=== PATIENT | male | born 1945 | race Caucasian/White ===

== ENCOUNTER 2018-03-25 16:59 | Inpatient (IN) | payer MEDICARE, MEDICAID ==
[~2018-03-25] VITALS: Ht 172.7 cm; Wt 115.7 kg
[~2018-03-25 16:59] MED LIST: ACET-2178 PO; APIX5TAB PO; ATOR20TA PO; BISA10SU8 RC; COR3 PO; DEXT15DR5 RIGHTEYE; DOCU-138 PO; DUONEB3 ML INH; FERR325T6 PO; FLUT1DIS2 IH; FURO-151 PO; HYDR-4001 PO; LEVVL SQ; MULT-1146 MT; OMEP20TA15 PO; ONDA4TAB21 PO; P20 PO; TRAV2.5D EACHEYE
[2018-03-25] MEDS ORDERED: PIPERACILLIN/TAZ 3.375G PREMIX 50 ML IV ONE (18:00)
[2018-03-25] MEDS ORDERED: SODIUM CHLORIDE 0.9% 1000ML BAG (SEPSIS BOLUS) IV ONE (18:00)
[2018-03-25] MEDS ORDERED: FUROSEMIDE 40MG/4ML VIAL IV ONE (18:00)
[2018-03-25] MEDS ORDERED: VANCOMYCIN 1 G PREMIX 200 ML IV ONE (18:00)
[2018-03-25] MEDS ORDERED: ASPIRIN 81MG TABLET PO ONE (18:00)
[2018-03-25] MEDS ORDERED: NITROGLYCERIN OINT 1GM/INCH UDPKT TD ONE (18:00)
[2018-03-25 19:22] LABS: BASOPHILS % 0.6 % (0.0-2.0); EOSINOPHILS % 0.3 % (0.0-5.0); HEMOGLOBIN. 10.6 g/dL (14.0-18.0); LYMPHOCYTES % 11.1 % (20.0-50.0); MEAN CORPUSCULAR HEMOGLOBIN 28.9 pg (28.0-32.0); MEAN CORPUSCULAR VOLUME 87.6 fL (80.0-94.0); MEAN PLATELET VOLUME 8.3 fl (7.4-10.4); MONOCYTES % 11.4 % (2.0-8.0); NEUTROPHILS % 76.6 % (40.0-76.0); PLATELET 110 x1000/uL (130-400); RED BLOOD CELL COUNT 3.65 mill/uL (4.7-6.1); RED CELL DISTRIBUTION WIDTH 16.9 % (11.6-14.6)
[2018-03-25 19:25] LABS: CHLORIDE 93 mEq/L (98-107)
[2018-03-25 19:26] LABS: INR 1.1; PROTHROMBIN TIME 11.9 sec (9.4-11.6)
[2018-03-25 19:47] LABS: CLARITY URINE CLEAR (CLEAR); COLOR URINE YELLOW (YELLOW); KETONES URINE NEGATIVE (NEGATIVE); LEUKOCYTE ESTERASE URINE NEGATIVE (NEGATIVE); NITRITE URINE NEGATIVE (NEGATIVE); OCCULT BLOOD URINE NEGATIVE (NEGATIVE); PH URINE 7.5 (4.5-8.0); PROTEIN URINE NEGATIVE (NEGATIVE); SPECIFIC GRAVITY URINE 1.011 (1.005-1.030)
[2018-03-25] MEDS ORDERED: ZOLPIDEM TARTRATE 5MG TABLET PO PRN (21:00)
[2018-03-25] MEDS ORDERED: DOCUSATE SODIUM 100MG CAPSULE PO PRN (22:00)
[2018-03-25] MEDS ORDERED: MAGNESIUM/ALUMINUM HYDROXIDE/SIMETHICONE 30ML UDC PO PRN (22:00)
[2018-03-25] MEDS ORDERED: ENOXAPARIN 40MG/0.4ML SYR SUBCUT SCH (22:00)
[2018-03-25] MEDS ORDERED: CLONIDINE 0.1MG TABLET PO PRN (22:00)
[2018-03-25] MEDS ORDERED: IPRATROPIUM/ALBUTEROL 0.5-3(2.5)MG/3ML NEB INH PRN (22:00)
[2018-03-25] MEDS ORDERED: ACETAMINOPHEN 325MG TABLET PO PRN (22:00)
[2018-03-25] MEDS ORDERED: HYDROCODONE/ACETAMINOPHEN 5/325MG TABLET PO PRN (22:00)
[2018-03-25 22:10] VITALS: BP 114/59
[2018-03-25 22:20] VITALS: BP 114/59
[2018-03-25] MEDS ORDERED: ONDANSETRON 4MG ODT PO PRN (22:30)
[2018-03-26] VITALS: BP 101/50
[2018-03-26] MEDS: IPRATROPIUM/ALBUTEROL 0.5-3(2.5)MG/3ML NEB INH SCH ×4 (00:29→21:03)
[2018-03-26 04:00] VITALS: BP 119/63
[2018-03-26] MEDS: OMEPRAZOLE 20MG CAPSULE EXTENDED RELEASE PO SCH (05:51)
[2018-03-26 06:39] LABS: BASOPHILS % 0.5 % (0.0-2.0); EOSINOPHILS % 0.4 % (0.0-5.0); HEMATOCRIT. 29.1 % (42.0-52.0); HEMOGLOBIN. 9.8 g/dL (14.0-18.0); LYMPHOCYTES % 11.9 % (20.0-50.0); MEAN CORPUSCULAR HEMOGLOBIN 29.3 pg (28.0-32.0); MEAN CORPUSCULAR VOLUME 87.1 fL (80.0-94.0); MONOCYTES % 13.3 % (2.0-8.0); NEUTROPHILS % 73.9 % (40.0-76.0); PLATELET 105 x1000/uL (130-400); RED BLOOD CELL COUNT 3.34 mill/uL (4.7-6.1); RED CELL DISTRIBUTION WIDTH 16.8 % (11.6-14.6)
[2018-03-26 08:00] VITALS: BP 123/60
[2018-03-26] MEDS ORDERED: ENOXAPARIN 30MG/0.3ML SYR SUBCUT SCH (09:00)
[2018-03-26 12:00] VITALS: BP 117/55
[2018-03-26] MEDS ORDERED: DEXTROSE 50% WATER 50ML SYRINGE IV PRN (12:15)
[2018-03-26] MEDS: INSULIN LISPRO 100 UNITS/ML SUBCUT SCH ×3 (12:34→20:59)
[2018-03-26] MEDS: POTASSIUM CHLORIDE 20MEQ TABLET SR PO SCH (12:53)
[2018-03-26] MEDS: CARVEDILOL 6.25 MG TABLET PO SCH ×2 (12:54→20:37)
[2018-03-26] MEDS ORDERED: METHYLPREDNISOLONE SOD SUCC 125 MG/2 ML VIAL IV SCH (13:30)
[2018-03-26 16:00] VITALS: BP 127/51
[2018-03-26] MEDS: FUROSEMIDE 40MG/4ML VIAL IV SCH (17:50)
[2018-03-26] MEDS: APIXABAN 5 MG TABLET PO SCH (17:50)
[2018-03-26] MEDS: BLOOD SUGAR DIAGNOSTIC STRIP TEST SCH ×2 (17:51→20:56)
[2018-03-26] MEDS: CEFAZOLIN 1000MG PREMIX 50 ML IV SCH (19:03)
[2018-03-26 20:00] VITALS: BP 109/59
[2018-03-26] MEDS: BUDESONIDE 0.5MG/2ML NEB HHN SCH (21:03)
[2018-03-27] VITALS: BP 101/66
[2018-03-27] MEDS: IPRATROPIUM/ALBUTEROL 0.5-3(2.5)MG/3ML NEB INH SCH ×4 (01:26→19:53)
[2018-03-27 04:00] VITALS: BP 118/60
[2018-03-27] MEDS: BLOOD SUGAR DIAGNOSTIC STRIP TEST SCH ×4 (06:27→20:46)
[2018-03-27] MEDS: FUROSEMIDE 40MG/4ML VIAL IV SCH ×2 (06:31→16:25)
[2018-03-27] MEDS: OMEPRAZOLE 20MG CAPSULE EXTENDED RELEASE PO SCH (06:31)
[2018-03-27] MEDS: CEFAZOLIN 1000MG PREMIX 50 ML IV SCH ×2 (06:31→18:29)
[2018-03-27] MEDS: INSULIN LISPRO 100 UNITS/ML SUBCUT SCH ×5 (06:35→20:50)
[2018-03-27 06:43] LABS: BASOPHILS % 0.1 % (0.0-2.0); HEMATOCRIT. 29.2 % (42.0-52.0); HEMOGLOBIN. 9.7 g/dL (14.0-18.0); LYMPHOCYTES % 10.7 % (20.0-50.0); MEAN CORPUSCULAR VOLUME 87.1 fL (80.0-94.0); MEAN PLATELET VOLUME 8.1 fl (7.4-10.4); MONOCYTES % 6.7 % (2.0-8.0); NEUTROPHILS % 82.5 % (40.0-76.0); PLATELET 93 x1000/uL (130-400); RED BLOOD CELL COUNT 3.35 mill/uL (4.7-6.1); RED CELL DISTRIBUTION WIDTH 16.5 % (11.6-14.6)
[2018-03-27 08:00] VITALS: BP 115/57
[2018-03-27] MEDS: BUDESONIDE 0.5MG/2ML NEB HHN SCH ×2 (08:12→19:52)
[2018-03-27] MEDS: APIXABAN 5 MG TABLET PO SCH ×2 (08:53→16:26)
[2018-03-27] MEDS: POTASSIUM CHLORIDE 20MEQ TABLET SR PO SCH (08:53)
[2018-03-27] MEDS: CARVEDILOL 6.25 MG TABLET PO SCH ×2 (08:53→20:46)
[2018-03-27] MEDS ORDERED: FUROSEMIDE 40MG/4ML VIAL IV SCH (09:00)
[2018-03-27] MEDS: INSULIN GLARGINE UD 100 UNITS/ML SYR SUBCUT SCH (13:00)
[2018-03-27 16:00] VITALS: BP 110/53
[2018-03-27 20:00] VITALS: BP 116/57
[2018-03-28] VITALS: BP 118/61
[2018-03-28] MEDS: IPRATROPIUM/ALBUTEROL 0.5-3(2.5)MG/3ML NEB INH SCH ×4 (01:36→20:57)
[2018-03-28 04:00] VITALS: BP 115/70
[2018-03-28] MEDS: FUROSEMIDE 40MG/4ML VIAL IV SCH (05:20)
[2018-03-28] MEDS: OMEPRAZOLE 20MG CAPSULE EXTENDED RELEASE PO SCH (05:20)
[2018-03-28] MEDS: CEFAZOLIN 1000MG PREMIX 50 ML IV SCH ×2 (05:21→17:59)
[2018-03-28] MEDS: INSULIN LISPRO 100 UNITS/ML SUBCUT SCH ×4 (05:36→20:52)
[2018-03-28] MEDS: BLOOD SUGAR DIAGNOSTIC STRIP TEST SCH ×4 (05:36→20:53)
[2018-03-28 07:28] LABS: BASOPHILS % 0.5 % (0.0-2.0); EOSINOPHILS % 0.2 % (0.0-5.0); HEMATOCRIT. 28.4 % (42.0-52.0); HEMOGLOBIN. 9.6 g/dL (14.0-18.0); LYMPHOCYTES % 11.6 % (20.0-50.0); MEAN CORPUSCULAR HEMOGLOBIN 29.2 pg (28.0-32.0); MEAN CORPUSCULAR VOLUME 86.9 fL (80.0-94.0); MEAN PLATELET VOLUME 8.2 fl (7.4-10.4); MONOCYTES % 7.5 % (2.0-8.0); NEUTROPHILS % 80.2 % (40.0-76.0); PLATELET 116 x1000/uL (130-400); RED BLOOD CELL COUNT 3.27 mill/uL (4.7-6.1); RED CELL DISTRIBUTION WIDTH 16.7 % (11.6-14.6)
[2018-03-28 08:00] VITALS: BP 126/59
[2018-03-28] MEDS: BUDESONIDE 0.5MG/2ML NEB HHN SCH ×2 (08:10→20:57)
[2018-03-28] MEDS: CARVEDILOL 6.25 MG TABLET PO SCH ×2 (09:00→20:47)
[2018-03-28] MEDS: POTASSIUM CHLORIDE 20MEQ TABLET SR PO SCH (10:06)
[2018-03-28] MEDS: APIXABAN 5 MG TABLET PO SCH ×2 (10:07→18:00)
[2018-03-28] MEDS: INSULIN GLARGINE UD 100 UNITS/ML SYR SUBCUT SCH (10:08)
[2018-03-28 12:00] VITALS: BP 130/68
[2018-03-28 16:00] VITALS: BP 122/63
[2018-03-28] MEDS: FUROSEMIDE 100MG/10ML VIAL IV SCH (17:59)
[2018-03-28 20:00] VITALS: BP 118/68
[2018-03-29] VITALS (7 sets, daily range): BP systolic 111–140; BP diastolic 61–74
[2018-03-29] MEDS: IPRATROPIUM/ALBUTEROL 0.5-3(2.5)MG/3ML NEB INH SCH ×4 (01:35→21:17)
[2018-03-29] MEDS: OMEPRAZOLE 20MG CAPSULE EXTENDED RELEASE PO SCH (06:02)
[2018-03-29] MEDS: CEFAZOLIN 1000MG PREMIX 50 ML IV SCH ×2 (06:02→17:32)
[2018-03-29] MEDS: FUROSEMIDE 100MG/10ML VIAL IV SCH ×2 (06:02→17:32)
[2018-03-29] MEDS: BLOOD SUGAR DIAGNOSTIC STRIP TEST SCH ×4 (06:12→20:50)
[2018-03-29] MEDS: INSULIN LISPRO 100 UNITS/ML SUBCUT SCH ×4 (06:12→20:57)
[2018-03-29 07:02] LABS: BASOPHILS % 0.5 % (0.0-2.0); EOSINOPHILS % 0.5 % (0.0-5.0); HEMATOCRIT. 28.6 % (42.0-52.0); HEMOGLOBIN. 9.5 g/dL (14.0-18.0); LYMPHOCYTES % 13.1 % (20.0-50.0); MEAN CORPUSCULAR HEMOGLOBIN 29.1 pg (28.0-32.0); MEAN CORPUSCULAR VOLUME 87.2 fL (80.0-94.0); MEAN PLATELET VOLUME 8.1 fl (7.4-10.4); NEUTROPHILS % 76.9 % (40.0-76.0); PLATELET 111 x1000/uL (130-400); RED BLOOD CELL COUNT 3.28 mill/uL (4.7-6.1); RED CELL DISTRIBUTION WIDTH 16.7 % (11.6-14.6)
[2018-03-29] MEDS: BUDESONIDE 0.5MG/2ML NEB HHN SCH (07:43)
[2018-03-29] MEDS: POTASSIUM CHLORIDE 20MEQ TABLET SR PO SCH (09:02)
[2018-03-29] MEDS: CARVEDILOL 6.25 MG TABLET PO SCH ×2 (09:02→20:53)
[2018-03-29] MEDS: APIXABAN 5 MG TABLET PO SCH ×2 (09:02→17:32)
[2018-03-29] MEDS: INSULIN GLARGINE UD 100 UNITS/ML SYR SUBCUT SCH (11:02)
[2018-03-30] MEDS: IPRATROPIUM/ALBUTEROL 0.5-3(2.5)MG/3ML NEB INH SCH ×4 (01:19→21:00)
[2018-03-30 03:56] VITALS: BP 125/54
[2018-03-30] MEDS: CEFAZOLIN 1000MG PREMIX 50 ML IV SCH ×2 (06:18→17:31)
[2018-03-30] MEDS: INSULIN LISPRO 100 UNITS/ML SUBCUT SCH ×4 (06:20→20:57)
[2018-03-30] MEDS: OMEPRAZOLE 20MG CAPSULE EXTENDED RELEASE PO SCH (06:20)
[2018-03-30] MEDS: BLOOD SUGAR DIAGNOSTIC STRIP TEST SCH ×4 (06:20→20:54)
[2018-03-30] MEDS: FUROSEMIDE 100MG/10ML VIAL IV SCH ×2 (06:26→17:32)
[2018-03-30 08:00] VITALS: BP 125/61
[2018-03-30] MEDS: APIXABAN 5 MG TABLET PO SCH ×2 (10:14→17:32)
[2018-03-30] MEDS: CARVEDILOL 6.25 MG TABLET PO SCH ×2 (10:14→21:15)
[2018-03-30] MEDS: POTASSIUM CHLORIDE 20MEQ TABLET SR PO SCH (10:15)
[2018-03-30] MEDS: INSULIN GLARGINE UD 100 UNITS/ML SYR SUBCUT SCH (10:16)
[2018-03-30 12:00] VITALS: BP 130/66
[2018-03-30 16:00] VITALS: BP 92/62
[2018-03-30 17:13] LABS: HEMATOCRIT 29.5 % (42.0-52.0); HEMOGLOBIN 9.8 g/dL (14.0-18.0); MEAN CORPUSCULAR VOLUME 87.5 fL (80.0-94.0); PLATELET 100 x1000/uL (130-400); RED BLOOD CELL COUNT 3.37 mill/uL (4.7-6.1); RED CELL DISTRIBUTION WIDTH 16.2 % (11.6-14.6)
[2018-03-30 20:00] VITALS: BP 128/63
[2018-03-31] MEDS: IPRATROPIUM/ALBUTEROL 0.5-3(2.5)MG/3ML NEB INH SCH ×4 (00:48→21:20)
[2018-03-31] MEDS: CEFAZOLIN 1000MG PREMIX 50 ML IV SCH ×2 (05:56→17:19)
[2018-03-31] MEDS: BLOOD SUGAR DIAGNOSTIC STRIP TEST SCH ×4 (06:19→20:42)
[2018-03-31] MEDS: FUROSEMIDE 100MG/10ML VIAL IV SCH ×2 (06:19→17:17)
[2018-03-31] MEDS: OMEPRAZOLE 20MG CAPSULE EXTENDED RELEASE PO SCH (06:19)
[2018-03-31 06:35] LABS: BASOPHILS % 0.4 % (0.0-2.0); HEMATOCRIT. 29.9 % (42.0-52.0); HEMOGLOBIN. 10.1 g/dL (14.0-18.0); MEAN CORPUSCULAR HEMOGLOBIN 29.4 pg (28.0-32.0); MEAN CORPUSCULAR VOLUME 87.1 fL (80.0-94.0); MEAN PLATELET VOLUME 7.9 fl (7.4-10.4); MONOCYTES % 7.5 % (2.0-8.0); NEUTROPHILS % 73.1 % (40.0-76.0); PLATELET 108 x1000/uL (130-400); RED BLOOD CELL COUNT 3.43 mill/uL (4.7-6.1); RED CELL DISTRIBUTION WIDTH 16.1 % (11.6-14.6)
[2018-03-31] MEDS: INSULIN LISPRO 100 UNITS/ML SUBCUT SCH ×4 (06:37→20:42)
[2018-03-31] MEDS: CARVEDILOL 6.25 MG TABLET PO SCH ×2 (08:17→20:40)
[2018-03-31] MEDS: POTASSIUM CHLORIDE 20MEQ TABLET SR PO SCH (08:17)
[2018-03-31] MEDS: APIXABAN 5 MG TABLET PO SCH ×2 (08:18→17:13)
[2018-03-31 08:23] VITALS: BP 133/67
[2018-03-31] MEDS: INSULIN GLARGINE UD 100 UNITS/ML SYR SUBCUT SCH (10:17)
[2018-03-31 20:00] VITALS: BP 120/66
[2018-04-01] VITALS: BP 113/80
[2018-04-01] MEDS: IPRATROPIUM/ALBUTEROL 0.5-3(2.5)MG/3ML NEB INH SCH ×4 (01:31→21:45)
[2018-04-01 04:00] VITALS: BP 120/70
[2018-04-01] MEDS: CEFAZOLIN 1000MG PREMIX 50 ML IV SCH ×2 (06:05→17:59)
[2018-04-01] MEDS: BLOOD SUGAR DIAGNOSTIC STRIP TEST SCH ×4 (06:08→21:00)
[2018-04-01] MEDS: INSULIN LISPRO 100 UNITS/ML SUBCUT SCH ×4 (06:09→21:00)
[2018-04-01] MEDS: FUROSEMIDE 100MG/10ML VIAL IV SCH ×2 (06:15→17:41)
[2018-04-01] MEDS: OMEPRAZOLE 20MG CAPSULE EXTENDED RELEASE PO SCH (06:15)
[2018-04-01 08:00] VITALS: BP 137/59
[2018-04-01] MEDS: POTASSIUM CHLORIDE 20MEQ TABLET SR PO SCH (08:43)
[2018-04-01] MEDS: APIXABAN 5 MG TABLET PO SCH ×2 (08:43→17:41)
[2018-04-01] MEDS: CARVEDILOL 6.25 MG TABLET PO SCH ×2 (08:44→20:56)
[2018-04-01 12:00] VITALS: BP 115/91
[2018-04-01] MEDS: INSULIN GLARGINE UD 100 UNITS/ML SYR SUBCUT SCH (12:11)
[2018-04-01 16:00] VITALS: BP 117/59
[2018-04-01 20:00] VITALS: BP 119/63
[2018-04-02] VITALS: BP 112/60
[2018-04-02] MEDS: IPRATROPIUM/ALBUTEROL 0.5-3(2.5)MG/3ML NEB INH SCH ×3 (02:30→15:11)
[2018-04-02 04:00] VITALS: BP 125/67
[2018-04-02] MEDS: CEFAZOLIN 1000MG PREMIX 50 ML IV SCH ×2 (05:21→18:00)
[2018-04-02] MEDS: INSULIN LISPRO 100 UNITS/ML SUBCUT SCH ×3 (06:43→17:30)
[2018-04-02] MEDS: BLOOD SUGAR DIAGNOSTIC STRIP TEST SCH ×3 (06:43→17:26)
[2018-04-02] MEDS: OMEPRAZOLE 20MG CAPSULE EXTENDED RELEASE PO SCH (06:44)
[2018-04-02] MEDS: FUROSEMIDE 100MG/10ML VIAL IV SCH ×2 (06:44→17:26)
[2018-04-02 07:06] LABS: BASOPHILS % 0.6 % (0.0-2.0); EOSINOPHILS % 0.7 % (0.0-5.0); HEMATOCRIT. 27.4 % (42.0-52.0); HEMOGLOBIN. 9.2 g/dL (14.0-18.0); LYMPHOCYTES % 15.5 % (20.0-50.0); MEAN CORPUSCULAR HEMOGLOBIN 29.4 pg (28.0-32.0); MEAN CORPUSCULAR VOLUME 87.2 fL (80.0-94.0); MEAN PLATELET VOLUME 7.8 fl (7.4-10.4); MONOCYTES % 7.8 % (2.0-8.0); NEUTROPHILS % 75.4 % (40.0-76.0); PLATELET 102 x1000/uL (130-400); RED BLOOD CELL COUNT 3.14 mill/uL (4.7-6.1); RED CELL DISTRIBUTION WIDTH 16.4 % (11.6-14.6)
[2018-04-02 07:46] VITALS: BP 112/55
[2018-04-02] MEDS: POTASSIUM CHLORIDE 20MEQ TABLET SR PO SCH (09:19)
[2018-04-02] MEDS: APIXABAN 5 MG TABLET PO SCH ×2 (09:19→17:26)
[2018-04-02] MEDS: CARVEDILOL 6.25 MG TABLET PO SCH (09:20)
[2018-04-02] MEDS: INSULIN GLARGINE UD 100 UNITS/ML SYR SUBCUT SCH (09:41)
[2018-04-02 12:00] VITALS: BP 100/45
[2018-04-02 14:45] VITALS: BP 100/45
== END 2018-04-02 21:09 | DRG 291 ==
LOC: ER 16:59 → 8WST 20:39 → EDBEDREQTM 20:45 → EDBEDREQ 20:45 → ENRESERV 21:07
PROVIDERS: ADMIT Specialist; ATTEND Specialist
PROC: 5A09357 Assistance with Respiratory Ventilation, Less than 24 Consecutive Hours, Continuous Positive Airway Pressure (ICD-10-PCS; principal; 2018-03-25)
PROC: 5A09357 Assistance with Respiratory Ventilation, Less than 24 Consecutive Hours, Continuous Positive Airway Pressure (ICD-10-PCS; 2018-03-26)
PROC: 5A09357 Assistance with Respiratory Ventilation, Less than 24 Consecutive Hours, Continuous Positive Airway Pressure (ICD-10-PCS; 2018-03-27)
PROC: 5A09357 Assistance with Respiratory Ventilation, Less than 24 Consecutive Hours, Continuous Positive Airway Pressure (ICD-10-PCS; 2018-03-28)
PROC: 5A09357 Assistance with Respiratory Ventilation, Less than 24 Consecutive Hours, Continuous Positive Airway Pressure (ICD-10-PCS; 2018-03-29)
PROC: 5A09357 Assistance with Respiratory Ventilation, Less than 24 Consecutive Hours, Continuous Positive Airway Pressure (ICD-10-PCS; 2018-03-30)
PROC: 5A09357 Assistance with Respiratory Ventilation, Less than 24 Consecutive Hours, Continuous Positive Airway Pressure (ICD-10-PCS; 2018-03-31)
PROC: 5A09357 Assistance with Respiratory Ventilation, Less than 24 Consecutive Hours, Continuous Positive Airway Pressure (ICD-10-PCS; 2018-04-01)
PROC: 5A09357 Assistance with Respiratory Ventilation, Less than 24 Consecutive Hours, Continuous Positive Airway Pressure (ICD-10-PCS; 2018-04-02)
DX: I13.0 Hypertensive heart and chronic kidney disease with heart failure and stage 1 through stage 4 chronic kidney disease, or unspecified chronic kidney disease (principal); I50.43 Acute on chronic combined systolic (congestive) and diastolic (congestive) heart failure; J96.20 Acute and chronic respiratory failure, unspecified whether with hypoxia or hypercapnia; E44.1 Mild protein-calorie malnutrition; L03.116 Cellulitis of left lower limb; L03.115 Cellulitis of right lower limb; N17.9 Acute kidney failure, unspecified; E87.3 Alkalosis; I25.10 Atherosclerotic heart disease of native coronary artery without angina pectoris; I48.0 Paroxysmal atrial fibrillation; I27.20 Pulmonary hypertension, unspecified; G47.33 Obstructive sleep apnea (adult) (pediatric); R31.0 Gross hematuria; N40.0 Benign prostatic hyperplasia without lower urinary tract symptoms; D75.9 Disease of blood and blood-forming organs, unspecified; N18.9 Chronic kidney disease, unspecified; J44.9 Chronic obstructive pulmonary disease, unspecified; I42.9 Cardiomyopathy, unspecified; E78.5 Hyperlipidemia, unspecified; E11.51 Type 2 diabetes mellitus with diabetic peripheral angiopathy without gangrene; E11.22 Type 2 diabetes mellitus with diabetic chronic kidney disease; D69.6 Thrombocytopenia, unspecified; D64.9 Anemia, unspecified; E66.01 Morbid (severe) obesity due to excess calories; Z95.5 Presence of coronary angioplasty implant and graft; Z99.81 Dependence on supplemental oxygen; Z90.2 Acquired absence of lung [part of]; Z89.421 Acquired absence of other right toe(s); Z85.118 Personal history of other malignant neoplasm of bronchus and lung; Z83.3 Family history of diabetes mellitus; Z82.49 Family history of ischemic heart disease and other diseases of the circulatory system; Z79.01 Long term (current) use of anticoagulants; Z68.38 Body mass index [BMI] 38.0-38.9, adult; Z88.8 Allergy status to other drugs, medicaments and biological substances; Z79.4 Long term (current) use of insulin; Z79.899 Other long term (current) drug therapy; Z89.422 Acquired absence of other left toe(s)
CPT/HCPCS: 36415; 51702; 71045; 76770; 80048; 80053; 81003; 82962; 83605; 83735; 83880; 84484; 85025; 85027; 85610; 86850; 86900; 87040; 87086; 93005; 93306; 93970; 94640; 94660; 96365; 96366; 96367; 96375; 97116; 97163; 97530; 99285; J0690; J1650; J1815; J1940; J2543; J2930; J3370; J7030; J7040; J7050; J7620; J7626; A4315

== ENCOUNTER 2018-04-12 11:20 | Inpatient (IN) | payer MEDICARE, MEDICAID ==
[~2018-04-12] VITALS: Ht 172.7 cm; Wt 109.3 kg
[2018-04-12] VITALS (7 sets, daily range): BP systolic 109–126; BP diastolic 58–76
[2018-04-12] MEDS ORDERED: BISA10SU8 RC (12:46)
[2018-04-12] MEDS ORDERED: IPRA3AMP31 NEB (12:46)
[2018-04-12] MEDS ORDERED: ZOLP5TAB2 MT (12:46)
[2018-04-12] MEDS ORDERED: FURO40TA5 MT (12:46)
[2018-04-12] MEDS ORDERED: CLON-457 PO (12:46)
[2018-04-12] MEDS ORDERED: ONDA4TAB50 MT (12:46)
[2018-04-12] MEDS ORDERED: CARV6.2548 MT (12:46)
[2018-04-12] MEDS ORDERED: TRAV2.5D EACHEYE (12:46)
[2018-04-12] MEDS ORDERED: FLUT1DIS2 INH (12:46)
[2018-04-12] MEDS ORDERED: DEXT30DR5 OP (12:46)
[2018-04-12] MEDS ORDERED: ATOR20TA65 MT (12:46)
[2018-04-12] MEDS ORDERED: LOPE2CAP MT (12:46)
[2018-04-12] MEDS ORDERED: APIX5TAB MT (12:46)
[2018-04-12] MEDS ORDERED: LEVVL SQ (12:46)
[2018-04-12] MEDS ORDERED: DOCU-150 MT (12:46)
[2018-04-12] MEDS ORDERED: MULT-1146 MT (12:46)
[2018-04-12] MEDS ORDERED: HYDR-4001 MT (12:46)
[2018-04-12] MEDS ORDERED: OMEP20CA10 MT (12:46)
[2018-04-12] MEDS ORDERED: FUROSEMIDE 100MG/10ML VIAL IVP NR (13:00)
[2018-04-12] MEDS ORDERED: ACETAMINOPHEN 325MG TABLET PO PRN (13:00)
[2018-04-12] MEDS ORDERED: CLONIDINE 0.1MG TABLET PO PRN (13:00)
[2018-04-12] MEDS ORDERED: IPRATROPIUM/ALBUTEROL 0.5-3(2.5)MG/3ML NEB HHN PRN (13:00)
[2018-04-12] MEDS ORDERED: DEXTROSE 50% WATER 50ML SYRINGE IV PRN ×2 (13:00)
[2018-04-12] MEDS ORDERED: DOBUTAMINE HCL 500 MG in DEXT 5% WATER 210 ML IV SCH (13:45)
[2018-04-12 15:35] LABS: BASOPHILS % 0.9 % (0.0-2.0); HEMATOCRIT. 29.6 % (42.0-52.0); HEMOGLOBIN. 9.9 g/dL (14.0-18.0); LYMPHOCYTES % 19.4 % (20.0-50.0); MEAN CORPUSCULAR HEMOGLOBIN 29.1 pg (28.0-32.0); MEAN CORPUSCULAR VOLUME 87.2 fL (80.0-94.0); MEAN PLATELET VOLUME 7.4 fl (7.4-10.4); MONOCYTES % 13.2 % (2.0-8.0); NEUTROPHILS % 65.5 % (40.0-76.0); PLATELET 154 x1000/uL (130-400); RED CELL DISTRIBUTION WIDTH 16.8 % (11.6-14.6)
[2018-04-12 15:42] LABS: CHLORIDE 97 mEq/L (98-107)
[2018-04-12] MEDS ORDERED: POTASSIUM CHLORIDE 20MEQ TABLET SR PO SCH (16:15)
[2018-04-12] MEDS: MILRINONE 20MG-DEXT 5% PREMIX 100 ML IV SCH (16:46)
[2018-04-12] MEDS: APIXABAN 5 MG TABLET PO SCH (16:47)
[2018-04-12] MEDS: BLOOD SUGAR DIAGNOSTIC STRIP TEST SCH ×2 (16:47→20:27)
[2018-04-12] MEDS: INSULIN LISPRO 100 UNITS/ML SUBCUT SCH ×2 (17:16→20:28)
[2018-04-12] MEDS: PIPERACILLIN/TAZ 3.375G PREMIX 50 ML IV SCH ×2 (17:48→23:05)
[2018-04-12] MEDS: ATORVASTATIN CALCIUM 20MG TABLET PO SCH (20:23)
[2018-04-12] MEDS ORDERED: CARVEDILOL 3.125 MG TABLET PO SCH (21:00)
[2018-04-13] VITALS (15 sets, daily range): BP systolic 99–142; BP diastolic 48–75
[2018-04-13] MEDS: IPRATROPIUM/ALBUTEROL 0.5-3(2.5)MG/3ML NEB HHN SCH ×4 (01:15→19:37)
[2018-04-13] MEDS: MILRINONE 20MG-DEXT 5% PREMIX 100 ML IV SCH ×3 (03:09→19:51)
[2018-04-13] MEDS: PIPERACILLIN/TAZ 3.375G PREMIX 50 ML IV SCH ×3 (05:09→17:51)
[2018-04-13] MEDS: BLOOD SUGAR DIAGNOSTIC STRIP TEST SCH ×4 (07:15→21:23)
[2018-04-13] MEDS: INSULIN LISPRO 100 UNITS/ML SUBCUT SCH ×4 (07:20→21:43)
[2018-04-13] MEDS: APIXABAN 5 MG TABLET PO SCH ×2 (08:44→17:51)
[2018-04-13] MEDS: POTASSIUM CHLORIDE 10MEQ TABLET SR PO SCH (08:44)
[2018-04-13] MEDS ORDERED: FUROSEMIDE 100MG/10ML VIAL IVP SCH (09:00)
[2018-04-13 10:35] LABS: BASOPHILS % 0.5 % (0.0-2.0); HEMATOCRIT. 28.3 % (42.0-52.0); HEMOGLOBIN. 9.6 g/dL (14.0-18.0); LYMPHOCYTES % 13.9 % (20.0-50.0); MEAN CORPUSCULAR HEMOGLOBIN 29.6 pg (28.0-32.0); MEAN CORPUSCULAR VOLUME 87.5 fL (80.0-94.0); MEAN PLATELET VOLUME 7.4 fl (7.4-10.4); MONOCYTES % 12.8 % (2.0-8.0); NEUTROPHILS % 71.8 % (40.0-76.0); PLATELET 158 x1000/uL (130-400); RED BLOOD CELL COUNT 3.23 mill/uL (4.7-6.1); RED CELL DISTRIBUTION WIDTH 16.5 % (11.6-14.6)
[2018-04-13] MEDS: FUROSEMIDE 40MG/4ML VIAL IVP SCH (17:51)
[2018-04-13] MEDS: ATORVASTATIN CALCIUM 20MG TABLET PO SCH (21:24)
[2018-04-13] MEDS ORDERED: DIGOXIN 500MCG/2ML AMP IV NR (22:15)
[2018-04-14] VITALS (13 sets, daily range): BP systolic 98–135; BP diastolic 42–77
[2018-04-14] MEDS: PIPERACILLIN/TAZ 3.375G PREMIX 50 ML IV SCH ×4 (00:14→18:08)
[2018-04-14] MEDS: IPRATROPIUM/ALBUTEROL 0.5-3(2.5)MG/3ML NEB HHN SCH ×4 (02:07→20:13)
[2018-04-14] MEDS: MILRINONE 20MG-DEXT 5% PREMIX 100 ML IV SCH ×4 (02:08→20:58)
[2018-04-14] MEDS ORDERED: DIGOXIN 500MCG/2ML AMP IV PRN ×2 (05:30)
[2018-04-14] MEDS: BLOOD SUGAR DIAGNOSTIC STRIP TEST SCH ×4 (06:23→20:58)
[2018-04-14] MEDS: FUROSEMIDE 40MG/4ML VIAL IVP SCH ×2 (06:24→17:13)
[2018-04-14 07:00] LABS: BASOPHILS % 0.7 % (0.0-2.0); EOSINOPHILS % 0.8 % (0.0-5.0); HEMATOCRIT. 25.5 % (42.0-52.0); HEMOGLOBIN. 8.7 g/dL (14.0-18.0); LYMPHOCYTES % 17.3 % (20.0-50.0); MEAN CORPUSCULAR HEMOGLOBIN 29.3 pg (28.0-32.0); MEAN CORPUSCULAR VOLUME 85.9 fL (80.0-94.0); MEAN PLATELET VOLUME 7.2 fl (7.4-10.4); MONOCYTES % 12.9 % (2.0-8.0); NEUTROPHILS % 68.3 % (40.0-76.0); PLATELET 157 x1000/uL (130-400); RED BLOOD CELL COUNT 2.97 mill/uL (4.7-6.1); RED CELL DISTRIBUTION WIDTH 16.5 % (11.6-14.6)
[2018-04-14] MEDS: INSULIN LISPRO 100 UNITS/ML SUBCUT SCH ×4 (07:20→21:06)
[2018-04-14] MEDS: APIXABAN 5 MG TABLET PO SCH ×2 (08:41→17:13)
[2018-04-14] MEDS: POTASSIUM CHLORIDE 10MEQ TABLET SR PO SCH (08:42)
[2018-04-14] MEDS ORDERED: DIGOXIN 500MCG/2ML AMP IV NR (16:34)
[2018-04-14] MEDS: DIGOXIN 500MCG/2ML AMP IV SCH (18:08)
[2018-04-14] MEDS: ATORVASTATIN CALCIUM 20MG TABLET PO SCH (20:58)
[2018-04-15] VITALS (10 sets, daily range): BP systolic 111–144; BP diastolic 51–70
[2018-04-15] MEDS: PIPERACILLIN/TAZ 3.375G PREMIX 50 ML IV SCH ×4 (00:18→17:48)
[2018-04-15] MEDS: IPRATROPIUM/ALBUTEROL 0.5-3(2.5)MG/3ML NEB HHN SCH ×4 (00:38→20:43)
[2018-04-15] MEDS: MILRINONE 20MG-DEXT 5% PREMIX 100 ML IV SCH ×4 (03:45→21:09)
[2018-04-15] MEDS: FUROSEMIDE 40MG/4ML VIAL IVP SCH ×2 (06:29→17:48)
[2018-04-15] MEDS: BLOOD SUGAR DIAGNOSTIC STRIP TEST SCH ×4 (06:29→21:13)
[2018-04-15] MEDS: INSULIN LISPRO 100 UNITS/ML SUBCUT SCH ×4 (06:43→21:00)
[2018-04-15 06:51] LABS: BASOPHILS % 0.6 % (0.0-2.0); EOSINOPHILS % 0.8 % (0.0-5.0); HEMATOCRIT. 25.3 % (42.0-52.0); HEMOGLOBIN. 8.5 g/dL (14.0-18.0); LYMPHOCYTES % 18.3 % (20.0-50.0); MEAN CORPUSCULAR HEMOGLOBIN 29.1 pg (28.0-32.0); MEAN CORPUSCULAR VOLUME 86.1 fL (80.0-94.0); MEAN PLATELET VOLUME 7.2 fl (7.4-10.4); MONOCYTES % 13.5 % (2.0-8.0); NEUTROPHILS % 66.8 % (40.0-76.0); PLATELET 140 x1000/uL (130-400); RED BLOOD CELL COUNT 2.93 mill/uL (4.7-6.1); RED CELL DISTRIBUTION WIDTH 16.4 % (11.6-14.6)
[2018-04-15] MEDS: APIXABAN 5 MG TABLET PO SCH ×2 (08:23→17:48)
[2018-04-15] MEDS: POTASSIUM CHLORIDE 10MEQ TABLET SR PO SCH (08:23)
[2018-04-15] MEDS: DIGOXIN 500MCG/2ML AMP IV SCH (17:48)
[2018-04-15] MEDS: ATORVASTATIN CALCIUM 20MG TABLET PO SCH (21:14)
[2018-04-16] VITALS (12 sets, daily range): BP systolic 115–135; BP diastolic 49–67
[2018-04-16] MEDS: PIPERACILLIN/TAZ 3.375G PREMIX 50 ML IV SCH ×5 (00:06→23:35)
[2018-04-16] MEDS: IPRATROPIUM/ALBUTEROL 0.5-3(2.5)MG/3ML NEB HHN SCH ×2 (01:35→07:34)
[2018-04-16] MEDS: MILRINONE 20MG-DEXT 5% PREMIX 100 ML IV SCH ×2 (02:11→08:28)
[2018-04-16] MEDS: BLOOD SUGAR DIAGNOSTIC STRIP TEST SCH ×4 (06:25→21:38)
[2018-04-16] MEDS: FUROSEMIDE 40MG/4ML VIAL IVP SCH ×2 (06:25→17:30)
[2018-04-16 07:08] LABS: BASOPHILS % 0.5 % (0.0-2.0); EOSINOPHILS % 0.5 % (0.0-5.0); HEMATOCRIT. 24.9 % (42.0-52.0); HEMOGLOBIN. 8.5 g/dL (14.0-18.0); LYMPHOCYTES % 13.9 % (20.0-50.0); MEAN CORPUSCULAR HEMOGLOBIN 29.3 pg (28.0-32.0); MEAN CORPUSCULAR VOLUME 85.8 fL (80.0-94.0); MEAN PLATELET VOLUME 7.2 fl (7.4-10.4); MONOCYTES % 12.8 % (2.0-8.0); NEUTROPHILS % 72.3 % (40.0-76.0); PLATELET 135 x1000/uL (130-400); RED CELL DISTRIBUTION WIDTH 15.6 % (11.6-14.6)
[2018-04-16] MEDS: INSULIN LISPRO 100 UNITS/ML SUBCUT SCH ×4 (07:20→21:00)
[2018-04-16] MEDS: POTASSIUM CHLORIDE 10MEQ TABLET SR PO SCH ×2 (08:54→09:03)
[2018-04-16] MEDS: APIXABAN 5 MG TABLET PO SCH ×2 (08:54→17:30)
[2018-04-16] MEDS: OMEPRAZOLE 20MG CAPSULE EXTENDED RELEASE PO SCH (12:16)
[2018-04-16] MEDS: DIGOXIN 500MCG/2ML AMP IV SCH (17:30)
[2018-04-16] MEDS: ATORVASTATIN CALCIUM 20MG TABLET PO SCH (21:39)
[2018-04-16] MEDS: CARVEDILOL 3.125 MG TABLET PO SCH (21:41)
[2018-04-17] VITALS (15 sets, daily range): BP systolic 99–139; BP diastolic 47–83
[2018-04-17] MEDS: PIPERACILLIN/TAZ 3.375G PREMIX 50 ML IV SCH ×3 (05:59→17:56)
[2018-04-17] MEDS: OMEPRAZOLE 20MG CAPSULE EXTENDED RELEASE PO SCH (05:59)
[2018-04-17] MEDS: BLOOD SUGAR DIAGNOSTIC STRIP TEST SCH ×4 (06:00→21:06)
[2018-04-17] MEDS: FUROSEMIDE 40MG/4ML VIAL IVP SCH ×2 (07:00→17:56)
[2018-04-17] MEDS: INSULIN LISPRO 100 UNITS/ML SUBCUT SCH ×4 (07:20→21:00)
[2018-04-17 07:39] LABS: BASOPHILS % 0.8 % (0.0-2.0); HEMOGLOBIN. 9.7 g/dL (14.0-18.0); LYMPHOCYTES % 13.9 % (20.0-50.0); MEAN CORPUSCULAR HEMOGLOBIN 28.6 pg (28.0-32.0); MEAN CORPUSCULAR VOLUME 86.8 fL (80.0-94.0); MEAN PLATELET VOLUME 7.5 fl (7.4-10.4); MONOCYTES % 8.4 % (2.0-8.0); NEUTROPHILS % 75.9 % (40.0-76.0); PLATELET 151 x1000/uL (130-400); RED CELL DISTRIBUTION WIDTH 16.1 % (11.6-14.6)
[2018-04-17 07:43] LABS: HEMATOCRIT. 29.5 % (42.0-52.0)
[2018-04-17] MEDS: APIXABAN 5 MG TABLET PO SCH ×2 (08:21→17:56)
[2018-04-17] MEDS: CARVEDILOL 3.125 MG TABLET PO SCH ×2 (08:22→21:09)
[2018-04-17] MEDS: POTASSIUM CHLORIDE 10MEQ TABLET SR PO SCH (08:22)
[2018-04-17] MEDS ORDERED: FUROSEMIDE 40MG/4ML VIAL IVP NR (10:45)
[2018-04-17] MEDS: LOSARTAN POTASSIUM 25 MG TABLET PO SCH (11:06)
[2018-04-17] MEDS: SPIRONOLACTONE 25MG TABLET PO SCH (11:06)
[2018-04-17 13:53] LABS: BG BASE EXCESS 4.6 mmol/L (-2.0-2.0); BG CARBOXYHEMOGLOBIN 0.7 % (0.5-1.5); BG HCO3 ACT 33.3 mmol/L (22.0-26.0); BG METHEMOGLOBIN 0.4 % (0.0-1.5); BG OXYGEN SATURATION 93.9 % (92.0-98.5); BG OXYHEMOGLOBIN 92.9 % (94.0-97.0); BG PCO2 74.1 mmHg (35.0-45.0); BG SAMPLE SITE RIGHT BRACHIAL; BG TOTAL HEMOGLOBIN 10.9 g/dL (12.0-18.0); BG VENT MODE MASK - VENTI
[2018-04-17 14:16] LABS: DIGOXIN 1.3 ng/mL (0.9-2.0)
[2018-04-17] MEDS: DIGOXIN 125MCG TABLET PO SCH (17:56)
[2018-04-17] MEDS: ATORVASTATIN CALCIUM 20MG TABLET PO SCH (21:09)
[2018-04-18] VITALS (18 sets, daily range): BP systolic 99–137; BP diastolic 41–94
[2018-04-18] MEDS: PIPERACILLIN/TAZ 3.375G PREMIX 50 ML IV SCH ×4 (00:40→18:20)
[2018-04-18] MEDS: BLOOD SUGAR DIAGNOSTIC STRIP TEST SCH ×4 (05:59→20:52)
[2018-04-18 07:12] LABS: BASOPHILS % 0.4 % (0.0-2.0); EOSINOPHILS % 0.7 % (0.0-5.0); HEMATOCRIT. 26.4 % (42.0-52.0); HEMOGLOBIN. 8.8 g/dL (14.0-18.0); LYMPHOCYTES % 11.6 % (20.0-50.0); MEAN CORPUSCULAR HEMOGLOBIN 28.9 pg (28.0-32.0); MEAN CORPUSCULAR VOLUME 87.1 fL (80.0-94.0); MEAN PLATELET VOLUME 7.4 fl (7.4-10.4); MONOCYTES % 8.5 % (2.0-8.0); NEUTROPHILS % 78.8 % (40.0-76.0); PLATELET 128 x1000/uL (130-400); RED BLOOD CELL COUNT 3.03 mill/uL (4.7-6.1); RED CELL DISTRIBUTION WIDTH 15.7 % (11.6-14.6)
[2018-04-18] MEDS: INSULIN LISPRO 100 UNITS/ML SUBCUT SCH ×4 (07:20→20:52)
[2018-04-18] MEDS: POTASSIUM CHLORIDE 10MEQ TABLET SR PO SCH (08:12)
[2018-04-18] MEDS: FUROSEMIDE 40MG/4ML VIAL IVP SCH (08:12)
[2018-04-18] MEDS: SPIRONOLACTONE 25MG TABLET PO SCH (08:12)
[2018-04-18] MEDS: APIXABAN 5 MG TABLET PO SCH ×2 (08:13→18:19)
[2018-04-18] MEDS: FAMOTIDINE 20MG TABLET PO SCH (08:13)
[2018-04-18] MEDS: LOSARTAN POTASSIUM 25 MG TABLET PO SCH (08:28)
[2018-04-18] MEDS: CARVEDILOL 3.125 MG TABLET PO SCH ×2 (08:28→20:47)
[2018-04-18 11:41] LABS: BG BASE EXCESS 4.7 mmol/L (-2.0-2.0); BG CARBOXYHEMOGLOBIN 1.6 % (0.5-1.5); BG DEOXYHEMOGLOBIN 14.8 % (0.0-5.0); BG FRACTION INSPIRED OXYGEN 35; BG HCO3 ACT 33.1 mmol/L (22.0-26.0); BG METHEMOGLOBIN 0.4 % (0.0-1.5); BG OXYGEN SATURATION 84.9 % (92.0-98.5); BG OXYHEMOGLOBIN 83.2 % (94.0-97.0); BG PCO2 73.6 mmHg (35.0-45.0); BG PH 7.271 (7.350-7.450); BG SAMPLE SITE RIGHT RADIAL; BG TOTAL HEMOGLOBIN 10.2 g/dL (12.0-18.0); BG VENT MODE MASK - VENTI
[2018-04-18] MEDS: DIGOXIN 125MCG TABLET PO SCH (18:20)
[2018-04-18] MEDS: ATORVASTATIN CALCIUM 20MG TABLET PO SCH (20:47)
[2018-04-19] VITALS (13 sets, daily range): BP systolic 85–132; BP diastolic 45–72
[2018-04-19] MEDS: PIPERACILLIN/TAZ 3.375G PREMIX 50 ML IV SCH ×4 (00:37→17:57)
[2018-04-19] MEDS: BLOOD SUGAR DIAGNOSTIC STRIP TEST SCH ×3 (06:06→16:00)
[2018-04-19 07:18] LABS: BASOPHILS % 0.5 % (0.0-2.0); EOSINOPHILS % 0.7 % (0.0-5.0); HEMATOCRIT. 26.9 % (42.0-52.0); HEMOGLOBIN. 9.2 g/dL (14.0-18.0); LYMPHOCYTES % 15.8 % (20.0-50.0); MEAN CORPUSCULAR HEMOGLOBIN 29.5 pg (28.0-32.0); MEAN CORPUSCULAR VOLUME 86.4 fL (80.0-94.0); MEAN PLATELET VOLUME 7.3 fl (7.4-10.4); MONOCYTES % 11.5 % (2.0-8.0); NEUTROPHILS % 71.5 % (40.0-76.0); PLATELET 129 x1000/uL (130-400); RED BLOOD CELL COUNT 3.12 mill/uL (4.7-6.1); RED CELL DISTRIBUTION WIDTH 15.7 % (11.6-14.6)
[2018-04-19] MEDS: INSULIN LISPRO 100 UNITS/ML SUBCUT SCH ×3 (07:20→16:00)
[2018-04-19] MEDS: APIXABAN 5 MG TABLET PO SCH ×2 (08:26→17:57)
[2018-04-19] MEDS: SPIRONOLACTONE 25MG TABLET PO SCH (08:26)
[2018-04-19] MEDS: CARVEDILOL 3.125 MG TABLET PO SCH (08:27)
[2018-04-19] MEDS: FAMOTIDINE 20MG TABLET PO SCH (08:27)
[2018-04-19] MEDS ORDERED: FUROSEMIDE 40MG/4ML VIAL IVP SCH (09:00)
[2018-04-19 09:20] LABS: CHLORIDE 92 mEq/L (98-107)
[2018-04-19] MEDS: DIGOXIN 125MCG TABLET PO SCH (17:57)
== END 2018-04-19 18:04 | DRG 291 ==
LOC: 3WST 11:20
PROVIDERS: ADMIT Specialist; ATTEND Specialist
PROC: 5A09357 Assistance with Respiratory Ventilation, Less than 24 Consecutive Hours, Continuous Positive Airway Pressure (ICD-10-PCS; 2018-04-12)
PROC: 05HY33Z Insertion of Infusion Device into Upper Vein, Percutaneous Approach (ICD-10-PCS; principal; 2018-04-13)
PROC: B54MZZA Ultrasonography of Right Upper Extremity Veins, Guidance (ICD-10-PCS; 2018-04-13)
PROC: 5A09457 Assistance with Respiratory Ventilation, 24-96 Consecutive Hours, Continuous Positive Airway Pressure (ICD-10-PCS; 2018-04-13)
PROC: 5A09457 Assistance with Respiratory Ventilation, 24-96 Consecutive Hours, Continuous Positive Airway Pressure (ICD-10-PCS; 2018-04-16)
DX: I13.0 Hypertensive heart and chronic kidney disease with heart failure and stage 1 through stage 4 chronic kidney disease, or unspecified chronic kidney disease (principal); I50.43 Acute on chronic combined systolic (congestive) and diastolic (congestive) heart failure; J96.22 Acute and chronic respiratory failure with hypercapnia; E44.0 Moderate protein-calorie malnutrition; L03.115 Cellulitis of right lower limb; L03.116 Cellulitis of left lower limb; N17.9 Acute kidney failure, unspecified; R65.10 Systemic inflammatory response syndrome (SIRS) of non-infectious origin without acute organ dysfunction; N18.9 Chronic kidney disease, unspecified; E11.22 Type 2 diabetes mellitus with diabetic chronic kidney disease; I25.5 Ischemic cardiomyopathy; I48.0 Paroxysmal atrial fibrillation; I27.20 Pulmonary hypertension, unspecified; E11.51 Type 2 diabetes mellitus with diabetic peripheral angiopathy without gangrene; J44.9 Chronic obstructive pulmonary disease, unspecified; E78.5 Hyperlipidemia, unspecified; I25.10 Atherosclerotic heart disease of native coronary artery without angina pectoris; I49.1 Atrial premature depolarization; R00.0 Tachycardia, unspecified; I49.3 Ventricular premature depolarization; E66.9 Obesity, unspecified; D64.9 Anemia, unspecified; G47.33 Obstructive sleep apnea (adult) (pediatric); Z82.49 Family history of ischemic heart disease and other diseases of the circulatory system; Z68.36 Body mass index [BMI] 36.0-36.9, adult; Z83.3 Family history of diabetes mellitus; Z89.421 Acquired absence of other right toe(s); Z95.5 Presence of coronary angioplasty implant and graft; Z90.2 Acquired absence of lung [part of]; Z85.118 Personal history of other malignant neoplasm of bronchus and lung; Z89.422 Acquired absence of other left toe(s); Z87.891 Personal history of nicotine dependence; Z99.81 Dependence on supplemental oxygen; Z71.3 Dietary counseling and surveillance
CPT/HCPCS: 36415; 36569; 36600; 71045; 76770; 76937; 80048; 80053; 80162; 82375; 82805; 82962; 83735; 83880; 84484; 85025; 93005; 93970; 94640; 94660; 97110; 97162; 97530; C1725; J1160; J1815; J1940; J2260; J2543; J7040; J7050; J7620

== ENCOUNTER 2018-06-09 14:56 | Inpatient (IN) | payer MEDICARE, MEDICAID ==
[~2018-06-09] VITALS: Ht 172.7 cm; Wt 105.7 kg
[~2018-06-09 14:56] MED LIST changes: +APIX5TAB MT; +ATOR20TA65 MT; +CARV6.2548 MT; +CLON-457 PO; +DEXT30DR5 OP; +DOCU-150 MT; +FLUT1DIS2 INH; +FURO40TA5 MT; +HYDR-4001 MT; +IPRA3AMP31 NEB; +LOPE2CAP MT; +OMEP20CA10 MT; +ONDA4TAB50 MT; +ZOLP5TAB2 MT
[2018-06-09] MEDS ORDERED: ALBUTEROL (0.083%) 2.5MG/3ML NEB HHN STA (15:17)
[2018-06-09 15:33] LABS: BG BASE EXCESS 10.8 mmol/L (-2.0-2.0); BG BILEVEL POS AIRWAY PRESSURE 15/5; BG CARBOXYHEMOGLOBIN 1.1 % (0.5-1.5); BG DEOXYHEMOGLOBIN 0.9 % (0.0-5.0); BG HCO3 ACT 37.5 mmol/L (22.0-26.0); BG METHEMOGLOBIN 0.2 % (0.0-1.5); BG OXYGEN SATURATION 99.1 % (92.0-98.5); BG OXYHEMOGLOBIN 97.8 % (94.0-97.0); BG PCO2 61.8 mmHg (35.0-45.0); BG PH 7.401 (7.350-7.450); BG PO2 181.5 mmHg (75.0-100.0); BG SAMPLE SITE RIGHT BRACHIAL; BG TOTAL HEMOGLOBIN 10.9 g/dL (12.0-18.0); BG VENT MODE MASK - BIPAP; BG VENT RATE 15 set
[2018-06-09 16:35] LABS: CHLORIDE 96 mEq/L (98-107)
[2018-06-09 16:36] LABS: INR 1.1; PROTHROMBIN TIME 11.4 sec (9.1-11.1)
[2018-06-09 16:40] LABS: BASOPHILS % 0.9 % (0.0-2.0); EOSINOPHILS % 1.1 % (0.0-5.0); ETHANOL BLOOD < 10 mg/dL; HEMATOCRIT. 29.4 % (42.0-52.0); HEMOGLOBIN. 9.8 g/dL (14.0-18.0); MEAN CORPUSCULAR HEMOGLOBIN 28.9 pg (28.0-32.0); MEAN CORPUSCULAR VOLUME 86.9 fL (80.0-94.0); MEAN PLATELET VOLUME 7.6 fl (7.4-10.4); MONOCYTES % 9.3 % (2.0-8.0); NEUTROPHILS % 63.7 % (40.0-76.0); PLATELET 150 x1000/uL (130-400); RED BLOOD CELL COUNT 3.38 mill/uL (4.7-6.1); RED CELL DISTRIBUTION WIDTH 16.5 % (11.6-14.6)
[2018-06-09] MEDS ORDERED: FUROSEMIDE 100MG/10ML VIAL IVP NR (17:00)
[2018-06-09] MEDS ORDERED: POTASSIUM CHLORIDE 20MEQ TABLET SR PO ONE (17:30)
[2018-06-09] MEDS ORDERED: MAGNESIUM/ALUMINUM HYDROXIDE/SIMETHICONE 30ML UDC PO PRN (20:00)
[2018-06-09] MEDS ORDERED: GUAIFENESIN 200MG/10ML SUGAR FREE UDC PO PRN (20:00)
[2018-06-09] MEDS ORDERED: CLONIDINE 0.1MG TABLET PO PRN (20:00)
[2018-06-09] MEDS ORDERED: DOCUSATE SODIUM 100MG CAPSULE PO PRN (20:00)
[2018-06-09] MEDS ORDERED: HYDROCODONE/ACETAMINOPHEN 5/325MG TABLET PO PRN (20:00)
[2018-06-09] MEDS ORDERED: ONDANSETRON HCL 4MG/2ML INJ IV PRN (20:00)
[2018-06-09] MEDS ORDERED: HYDROCODONE/APAP 7.5/325MG 1 TAB TABLET PO PRN (20:00)
[2018-06-09] MEDS ORDERED: LORAZEPAM 2MG/ML CPJ IV PRN (20:00)
[2018-06-09 21:00] VITALS: BP 117/52
[2018-06-09] MEDS ORDERED: DEXTROSE 50% WATER 50ML SYRINGE IV PRN (21:30)
[2018-06-09 22:00] VITALS: BP 105/50
[2018-06-09] MEDS: DIPHENHYDRAMINE 50MG/ML VIAL IV PRN ×2 (23:32→23:44)
[2018-06-10] VITALS (12 sets, daily range): BP systolic 96–119; BP diastolic 36–69
[2018-06-10 06:33] LABS: CHLORIDE 96 mEq/L (98-107)
[2018-06-10 06:40] LABS: PHOSPHORUS 3.8 mg/dL (2.5-4.9)
[2018-06-10 06:41] LABS: LDL CHOLESTEROL 51 mg/dL (5-100)
[2018-06-10 06:42] LABS: HDL CHOLESTEROL 31 mg/dL (40-59); T4 FREE 1.29 ng/dL (0.76-1.46)
[2018-06-10 06:44] LABS: BASOPHILS % 0.6 % (0.0-2.0); EOSINOPHILS % 1.7 % (0.0-5.0); HEMATOCRIT. 29.1 % (42.0-52.0); HEMOGLOBIN. 9.6 g/dL (14.0-18.0); LYMPHOCYTES % 26.2 % (20.0-50.0); MEAN CORPUSCULAR HEMOGLOBIN 28.8 pg (28.0-32.0); MEAN CORPUSCULAR VOLUME 87.2 fL (80.0-94.0); MEAN PLATELET VOLUME 7.8 fl (7.4-10.4); NEUTROPHILS % 59.5 % (40.0-76.0); PLATELET 140 x1000/uL (130-400); RED BLOOD CELL COUNT 3.34 mill/uL (4.7-6.1); RED CELL DISTRIBUTION WIDTH 16.8 % (11.6-14.6)
[2018-06-10] MEDS: BLOOD SUGAR DIAGNOSTIC STRIP TEST SCH ×4 (06:56→21:28)
[2018-06-10] MEDS: POLYVINYL ALCOHOL OPHTH DROPS 15ML BOTHEYE SCH ×4 (06:56→17:59)
[2018-06-10] MEDS: INSULIN LISPRO 100 UNITS/ML SUBCUT SCH ×4 (08:00→21:00)
[2018-06-10] MEDS: FUROSEMIDE 40MG/4ML VIAL IVP SCH ×2 (09:29→17:59)
[2018-06-10] MEDS: APIXABAN 5 MG TABLET PO SCH ×2 (09:29→17:59)
[2018-06-10] MEDS: PANTOPRAZOLE SODIUM 40 MG/VIAL IV SCH (09:29)
[2018-06-10] MEDS: POTASSIUM CHLORIDE 20MEQ TABLET SR PO SCH (12:57)
[2018-06-10] MEDS: IPRATROPIUM/ALBUTEROL 0.5-3(2.5)MG/3ML NEB INH PRN (21:32)
[2018-06-10] MEDS: ATORVASTATIN CALCIUM 20MG TABLET PO SCH (21:35)
[2018-06-11] VITALS (13 sets, daily range): BP systolic 92–106; BP diastolic 42–59
[2018-06-11] MEDS: POLYVINYL ALCOHOL OPHTH DROPS 15ML BOTHEYE SCH ×4 (05:53→18:04)
[2018-06-11] MEDS: BLOOD SUGAR DIAGNOSTIC STRIP TEST SCH ×4 (07:56→20:47)
[2018-06-11] MEDS: POTASSIUM CHLORIDE 20MEQ TABLET SR PO SCH (07:57)
[2018-06-11] MEDS: INSULIN LISPRO 100 UNITS/ML SUBCUT SCH ×4 (07:57→21:00)
[2018-06-11] MEDS: PANTOPRAZOLE SODIUM 40 MG/VIAL IV SCH (07:57)
[2018-06-11] MEDS: APIXABAN 5 MG TABLET PO SCH ×2 (07:57→18:03)
[2018-06-11] MEDS: FUROSEMIDE 40MG/4ML VIAL IVP SCH ×2 (07:57→18:03)
[2018-06-11] MEDS: IPRATROPIUM/ALBUTEROL 0.5-3(2.5)MG/3ML NEB INH PRN ×3 (09:25→16:28)
[2018-06-11 10:27] LABS: BASOPHILS % 0.6 % (0.0-2.0); EOSINOPHILS % 1.2 % (0.0-5.0); HEMATOCRIT. 29.8 % (42.0-52.0); HEMOGLOBIN. 9.7 g/dL (14.0-18.0); LYMPHOCYTES % 26.5 % (20.0-50.0); MEAN CORPUSCULAR HEMOGLOBIN 28.8 pg (28.0-32.0); MEAN CORPUSCULAR VOLUME 87.9 fL (80.0-94.0); MEAN PLATELET VOLUME 7.4 fl (7.4-10.4); MONOCYTES % 10.8 % (2.0-8.0); NEUTROPHILS % 60.9 % (40.0-76.0); PLATELET 127 x1000/uL (130-400); RED BLOOD CELL COUNT 3.39 mill/uL (4.7-6.1); RED CELL DISTRIBUTION WIDTH 16.5 % (11.6-14.6)
[2018-06-11 14:21] LABS: BG BILEVEL POS AIRWAY PRESSURE 15/5; BG CARBOXYHEMOGLOBIN 0.4 % (0.5-1.5); BG DEOXYHEMOGLOBIN 2.8 % (0.0-5.0); BG FRACTION INSPIRED OXYGEN 40; BG HCO3 ACT 37.4 mmol/L (22.0-26.0); BG OXYGEN SATURATION 97.2 % (92.0-98.5); BG OXYHEMOGLOBIN 96.8 % (94.0-97.0); BG PCO2 68.8 mmHg (35.0-45.0); BG PH 7.353 (7.350-7.450); BG PO2 99.6 mmHg (75.0-100.0); BG SAMPLE SITE RIGHT RADIAL; BG TOTAL HEMOGLOBIN 9.7 g/dL (12.0-18.0); BG VENT MODE MASK - BIPAP
[2018-06-11] MEDS: ATORVASTATIN CALCIUM 20MG TABLET PO SCH (21:10)
[2018-06-12] VITALS (12 sets, daily range): BP systolic 92–135; BP diastolic 40–67
[2018-06-12] MEDS: POLYVINYL ALCOHOL OPHTH DROPS 15ML BOTHEYE SCH ×4 (06:00→18:06)
[2018-06-12 07:14] LABS: BASOPHILS % 0.6 % (0.0-2.0); EOSINOPHILS % 1.2 % (0.0-5.0); HEMOGLOBIN. 9.5 g/dL (14.0-18.0); LYMPHOCYTES % 25.9 % (20.0-50.0); MEAN CORPUSCULAR HEMOGLOBIN 29.6 pg (28.0-32.0); MEAN CORPUSCULAR VOLUME 87.5 fL (80.0-94.0); MEAN PLATELET VOLUME 7.5 fl (7.4-10.4); NEUTROPHILS % 61.3 % (40.0-76.0); PLATELET 133 x1000/uL (130-400); RED CELL DISTRIBUTION WIDTH 16.4 % (11.6-14.6)
[2018-06-12] MEDS: BLOOD SUGAR DIAGNOSTIC STRIP TEST SCH ×4 (07:30→21:00)
[2018-06-12 07:56] LABS: CHLORIDE 94 mEq/L (98-107)
[2018-06-12] MEDS: INSULIN LISPRO 100 UNITS/ML SUBCUT SCH ×4 (08:00→21:00)
[2018-06-12] MEDS: PANTOPRAZOLE SODIUM 40 MG/VIAL IV SCH (09:26)
[2018-06-12] MEDS: POTASSIUM CHLORIDE 20MEQ TABLET SR PO SCH (09:26)
[2018-06-12] MEDS: FUROSEMIDE 40MG/4ML VIAL IVP SCH ×2 (09:26→18:06)
[2018-06-12] MEDS: APIXABAN 5 MG TABLET PO SCH (09:26)
[2018-06-12] MEDS: ATORVASTATIN CALCIUM 20MG TABLET PO SCH (22:04)
[2018-06-13] VITALS (9 sets, daily range): BP systolic 98–145; BP diastolic 54–111
[2018-06-13] MEDS: POLYVINYL ALCOHOL OPHTH DROPS 15ML BOTHEYE SCH ×4 (05:01→17:34)
[2018-06-13] MEDS: FUROSEMIDE 40MG/4ML VIAL IVP SCH ×2 (07:09→17:34)
[2018-06-13] MEDS: INSULIN LISPRO 100 UNITS/ML SUBCUT SCH ×4 (07:53→21:00)
[2018-06-13] MEDS: BLOOD SUGAR DIAGNOSTIC STRIP TEST SCH ×4 (07:53→21:00)
[2018-06-13 08:31] LABS: BASOPHILS % 0.6 % (0.0-2.0); EOSINOPHILS % 1.1 % (0.0-5.0); HEMATOCRIT. 32.8 % (42.0-52.0); HEMOGLOBIN. 10.5 g/dL (14.0-18.0); LYMPHOCYTES % 27.5 % (20.0-50.0); MEAN CORPUSCULAR HEMOGLOBIN 28.5 pg (28.0-32.0); MEAN CORPUSCULAR VOLUME 88.8 fL (80.0-94.0); MEAN PLATELET VOLUME 7.2 fl (7.4-10.4); MONOCYTES % 11.7 % (2.0-8.0); NEUTROPHILS % 59.1 % (40.0-76.0); PLATELET 128 x1000/uL (130-400); RED BLOOD CELL COUNT 3.69 mill/uL (4.7-6.1); RED CELL DISTRIBUTION WIDTH 16.7 % (11.6-14.6)
[2018-06-13 08:33] LABS: INR 1.2; PARTIAL THROMBOPLASTIN TIME 31.9 sec (23.4-31.0); PROTHROMBIN TIME 11.6 sec (9.1-11.1)
[2018-06-13] MEDS: POTASSIUM CHLORIDE 20MEQ TABLET SR PO SCH (08:50)
[2018-06-13] MEDS: PANTOPRAZOLE SODIUM 40 MG/VIAL IV SCH (08:50)
[2018-06-13] MEDS: ATORVASTATIN CALCIUM 20MG TABLET PO SCH (22:00)
[2018-06-14] VITALS (23 sets, daily range): BP systolic 104–147; BP diastolic 54–83
[2018-06-14] MEDS: POLYVINYL ALCOHOL OPHTH DROPS 15ML BOTHEYE SCH ×4 (05:09→17:18)
[2018-06-14 06:46] LABS: BASOPHILS % 0.7 % (0.0-2.0); EOSINOPHILS % 1.1 % (0.0-5.0); HEMATOCRIT. 29.9 % (42.0-52.0); HEMOGLOBIN. 9.9 g/dL (14.0-18.0); LYMPHOCYTES % 28.5 % (20.0-50.0); MEAN CORPUSCULAR HEMOGLOBIN 29.1 pg (28.0-32.0); MEAN CORPUSCULAR VOLUME 87.8 fL (80.0-94.0); MEAN PLATELET VOLUME 7.3 fl (7.4-10.4); MONOCYTES % 10.9 % (2.0-8.0); NEUTROPHILS % 58.8 % (40.0-76.0); PLATELET 118 x1000/uL (130-400); RED CELL DISTRIBUTION WIDTH 16.3 % (11.6-14.6)
[2018-06-14 06:52] LABS: INR 1.1; PROTHROMBIN TIME 11.5 sec (9.1-11.1)
[2018-06-14] MEDS: BLOOD SUGAR DIAGNOSTIC STRIP TEST SCH ×4 (07:43→20:29)
[2018-06-14] MEDS: INSULIN LISPRO 100 UNITS/ML SUBCUT SCH ×4 (07:55→20:29)
[2018-06-14] MEDS: FUROSEMIDE 40MG/4ML VIAL IVP SCH (08:13)
[2018-06-14] MEDS: POTASSIUM CHLORIDE 20MEQ TABLET SR PO SCH (08:13)
[2018-06-14] MEDS: FAMOTIDINE 20MG TABLET PO SCH ×2 (08:13→17:18)
[2018-06-14] MEDS ORDERED: CEFAZOLIN 1000MG PREMIX 50 ML IV SCH (11:00)
[2018-06-14 12:22] LABS: HEPATITIS B SURFACE ANTIGEN NEGATIVE
[2018-06-14 12:50] LABS: HEPATITIS B CORE AB IGM NEGATIVE
[2018-06-14 12:52] LABS: HEPATITIS A AB IGM NEGATIVE (NEGATIVE)
[2018-06-14] MEDS ORDERED: LIDOCAINE HCL 1% 20ML VIAL (Pyxis) INJ ONE (13:06)
[2018-06-14] MEDS ORDERED: SODIUM BICARBONATE 4% (2.4MEQ) 5ML VIAL IV ONE (13:06)
[2018-06-14] MEDS ORDERED: CEFAZOLIN 1000MG PREMIX 50 ML IV ONE (13:26)
[2018-06-14] MEDS ORDERED: FENTANYL CITRATE/PF 50MCG/ML 2ML VIAL ONE (13:26)
[2018-06-14] MEDS ORDERED: FENTANYL CITRATE/PF 50MCG/ML 2ML VIAL IV ONE (14:00)
[2018-06-14] MEDS ORDERED: ONDANSETRON HCL 4MG/2ML INJ ONE (14:38)
[2018-06-14] MEDS ORDERED: ONDANSETRON HCL 4MG/2ML INJ IV ONE (14:45)
[2018-06-14 15:38] LABS: BG BASE EXCESS 13.3 mmol/L (-2.0-2.0); BG CARBOXYHEMOGLOBIN 1.4 % (0.5-1.5); BG DEOXYHEMOGLOBIN 4.9 % (0.0-5.0); BG FRACTION INSPIRED OXYGEN 36; BG HCO3 ACT 43.9 mmol/L (22.0-26.0); BG METHEMOGLOBIN 0.3 % (0.0-1.5); BG OXYHEMOGLOBIN 93.4 % (94.0-97.0); BG PCO2 97.1 mmHg (35.0-45.0); BG PH 7.273 (7.350-7.450); BG PO2 78.4 mmHg (75.0-100.0); BG SAMPLE SITE RIGHT BRACHIAL; BG TOTAL HEMOGLOBIN 11.8 g/dL (12.0-18.0); BG VENT MODE NASAL CANNULA
[2018-06-14] MEDS: ATORVASTATIN CALCIUM 20MG TABLET PO SCH (20:30)
[2018-06-15] VITALS (12 sets, daily range): BP systolic 89–117; BP diastolic 38–62
[2018-06-15] MEDS: POLYVINYL ALCOHOL OPHTH DROPS 15ML BOTHEYE SCH ×4 (00:41→20:39)
[2018-06-15 07:13] LABS: BASOPHILS % 0.6 % (0.0-2.0); EOSINOPHILS % 0.9 % (0.0-5.0); HEMATOCRIT. 28.9 % (42.0-52.0); HEMOGLOBIN. 9.5 g/dL (14.0-18.0); MEAN CORPUSCULAR HEMOGLOBIN 28.9 pg (28.0-32.0); MEAN CORPUSCULAR VOLUME 88.3 fL (80.0-94.0); MEAN PLATELET VOLUME 7.7 fl (7.4-10.4); MONOCYTES % 12.7 % (2.0-8.0); NEUTROPHILS % 60.8 % (40.0-76.0); PLATELET 110 x1000/uL (130-400); RED BLOOD CELL COUNT 3.28 mill/uL (4.7-6.1); RED CELL DISTRIBUTION WIDTH 16.1 % (11.6-14.6)
[2018-06-15] MEDS: BLOOD SUGAR DIAGNOSTIC STRIP TEST SCH ×4 (07:30→20:40)
[2018-06-15] MEDS: INSULIN LISPRO 100 UNITS/ML SUBCUT SCH ×4 (07:32→20:40)
[2018-06-15 08:37] LABS: BG BASE EXCESS 16.2 mmol/L (-2.0-2.0); BG CARBOXYHEMOGLOBIN 1.5 % (0.5-1.5); BG FRACTION INSPIRED OXYGEN 36; BG HCO3 ACT 45.4 mmol/L (22.0-26.0); BG METHEMOGLOBIN 0.3 % (0.0-1.5); BG OXYHEMOGLOBIN 96.2 % (94.0-97.0); BG PH 7.321 (7.350-7.450); BG PO2 112.3 mmHg (75.0-100.0); BG SAMPLE SITE RIGHT BRACHIAL; BG TOTAL HEMOGLOBIN 10.2 g/dL (12.0-18.0); BG VENT MODE NASAL CANNULA
[2018-06-15] MEDS: POTASSIUM CHLORIDE 20MEQ TABLET SR PO SCH (08:53)
[2018-06-15] MEDS: FAMOTIDINE 20MG TABLET PO SCH ×2 (08:53→20:39)
[2018-06-15] MEDS: FUROSEMIDE 40MG/4ML VIAL IVP SCH (08:53)
[2018-06-15] MEDS: APIXABAN 5 MG TABLET PO SCH ×2 (12:27→20:39)
[2018-06-15] MEDS ORDERED: TERBUTALINE SULFATE 1MG/ML VIAL SUBCUT NR (15:00)
[2018-06-15] MEDS: CARVEDILOL 3.125 MG TABLET PO SCH (20:38)
[2018-06-15] MEDS: ATORVASTATIN CALCIUM 20MG TABLET PO SCH (20:39)
[2018-06-15] MEDS: METHYLPREDNISOLONE SOD SUCC 40 MG/ML VIAL IV SCH (20:47)
[2018-06-15] MEDS: IPRATROPIUM/ALBUTEROL 0.5-3(2.5)MG/3ML NEB HHN SCH (21:23)
[2018-06-16] VITALS (12 sets, daily range): BP systolic 82–115; BP diastolic 42–71
[2018-06-16] MEDS: METHYLPREDNISOLONE SOD SUCC 40 MG/ML VIAL IV SCH ×2 (00:13→08:48)
[2018-06-16] MEDS: POLYVINYL ALCOHOL OPHTH DROPS 15ML BOTHEYE SCH ×4 (00:13→17:43)
[2018-06-16] MEDS: IPRATROPIUM/ALBUTEROL 0.5-3(2.5)MG/3ML NEB HHN SCH ×6 (00:23→21:00)
[2018-06-16] MEDS: ACETAMINOPHEN 325MG TABLET PO PRN (05:53)
[2018-06-16 06:55] LABS: BASOPHILS % 0.3 % (0.0-2.0); EOSINOPHILS % 0.1 % (0.0-5.0); HEMATOCRIT. 31.1 % (42.0-52.0); LYMPHOCYTES % 15.9 % (20.0-50.0); MEAN CORPUSCULAR HEMOGLOBIN 28.6 pg (28.0-32.0); MEAN CORPUSCULAR VOLUME 88.6 fL (80.0-94.0); MEAN PLATELET VOLUME 7.7 fl (7.4-10.4); MONOCYTES % 1.5 % (2.0-8.0); NEUTROPHILS % 82.2 % (40.0-76.0); PLATELET 92 x1000/uL (130-400); RED BLOOD CELL COUNT 3.51 mill/uL (4.7-6.1); RED CELL DISTRIBUTION WIDTH 15.8 % (11.6-14.6)
[2018-06-16 07:21] LABS: CHLORIDE 95 mEq/L (98-107)
[2018-06-16] MEDS: BLOOD SUGAR DIAGNOSTIC STRIP TEST SCH ×4 (07:46→20:38)
[2018-06-16] MEDS: FUROSEMIDE 40MG/4ML VIAL IVP SCH (08:48)
[2018-06-16] MEDS: INSULIN LISPRO 100 UNITS/ML SUBCUT SCH ×4 (08:48→20:42)
[2018-06-16] MEDS: APIXABAN 5 MG TABLET PO SCH ×2 (08:49→17:43)
[2018-06-16] MEDS: FAMOTIDINE 20MG TABLET PO SCH ×2 (08:49→17:43)
[2018-06-16] MEDS: LOSARTAN POTASSIUM 25 MG TABLET PO SCH (08:50)
[2018-06-16] MEDS: CARVEDILOL 3.125 MG TABLET PO SCH ×2 (08:50→20:37)
[2018-06-16 15:15] LABS: BG BASE EXCESS 3.7 mmol/L (-2.0-2.0); BG CARBOXYHEMOGLOBIN 0.8 % (0.5-1.5); BG DEOXYHEMOGLOBIN 5.2 % (0.0-5.0); BG FRACTION INSPIRED OXYGEN 32; BG HCO3 ACT 30.6 mmol/L (22.0-26.0); BG METHEMOGLOBIN 0.2 % (0.0-1.5); BG OXYGEN SATURATION 94.7 % (92.0-98.5); BG OXYHEMOGLOBIN 93.8 % (94.0-97.0); BG PCO2 58.1 mmHg (35.0-45.0); BG PH 7.339 (7.350-7.450); BG PO2 79.4 mmHg (75.0-100.0); BG SAMPLE SITE RIGHT BRACHIAL; BG TOTAL HEMOGLOBIN 10.5 g/dL (12.0-18.0); BG VENT MODE NASAL CANNULA
[2018-06-16] MEDS: ATORVASTATIN CALCIUM 20MG TABLET PO SCH (20:37)
[2018-06-17] VITALS (12 sets, daily range): BP systolic 90–124; BP diastolic 41–64
[2018-06-17] MEDS: POLYVINYL ALCOHOL OPHTH DROPS 15ML BOTHEYE SCH ×4 (00:42→17:20)
[2018-06-17] MEDS: IPRATROPIUM/ALBUTEROL 0.5-3(2.5)MG/3ML NEB HHN SCH ×6 (01:10→20:10)
[2018-06-17] MEDS: ACETAMINOPHEN 325MG TABLET PO PRN (02:57)
[2018-06-17 06:22] LABS: BASOPHILS % 0.1 % (0.0-2.0); HEMATOCRIT. 26.5 % (42.0-52.0); HEMOGLOBIN. 8.8 g/dL (14.0-18.0); LYMPHOCYTES % 9.2 % (20.0-50.0); MEAN CORPUSCULAR HEMOGLOBIN 28.8 pg (28.0-32.0); MEAN CORPUSCULAR VOLUME 87.2 fL (80.0-94.0); MEAN PLATELET VOLUME 8.2 fl (7.4-10.4); MONOCYTES % 8.3 % (2.0-8.0); NEUTROPHILS % 82.4 % (40.0-76.0); PLATELET 104 x1000/uL (130-400); RED BLOOD CELL COUNT 3.04 mill/uL (4.7-6.1); RED CELL DISTRIBUTION WIDTH 16.1 % (11.6-14.6)
[2018-06-17 07:24] LABS: PHOSPHORUS 2.1 mg/dL (2.5-4.9)
[2018-06-17 07:40] LABS: BG BASE EXCESS 3.5 mmol/L (-2.0-2.0); BG CARBOXYHEMOGLOBIN 0.1 % (0.5-1.5); BG DEOXYHEMOGLOBIN 3.8 % (0.0-5.0); BG FRACTION INSPIRED OXYGEN 21; BG HCO3 ACT 28.8 mmol/L (22.0-26.0); BG METHEMOGLOBIN 0.3 % (0.0-1.5); BG OXYGEN SATURATION 96.2 % (92.0-98.5); BG OXYHEMOGLOBIN 95.8 % (94.0-97.0); BG PH 7.405 (7.350-7.450); BG SAMPLE SITE RIGHT BRACHIAL; BG TOTAL HEMOGLOBIN 9.8 g/dL (12.0-18.0); BG VENT MODE ROOM AIR
[2018-06-17] MEDS: INSULIN LISPRO 100 UNITS/ML SUBCUT SCH ×4 (08:31→21:45)
[2018-06-17] MEDS: BLOOD SUGAR DIAGNOSTIC STRIP TEST SCH ×4 (08:32→21:32)
[2018-06-17] MEDS: CARVEDILOL 3.125 MG TABLET PO SCH ×2 (09:00→16:13)
[2018-06-17] MEDS: LOSARTAN POTASSIUM 25 MG TABLET PO SCH (09:00)
[2018-06-17] MEDS: APIXABAN 5 MG TABLET PO SCH ×2 (09:38→16:13)
[2018-06-17] MEDS: FAMOTIDINE 20MG TABLET PO SCH ×2 (09:38→16:13)
[2018-06-17] MEDS: PREDNISONE 20MG TABLET PO SCH (09:39)
[2018-06-17] MEDS ORDERED: SODIUM PHOS,M-BASIC-D-BASIC 15 MM in DEXT 5% WATER 245 ML IV NR (10:00)
[2018-06-17 10:31] LABS: HEMATOCRIT 28.3 % (42.0-52.0); HEMOGLOBIN 9.4 g/dL (14.0-18.0)
[2018-06-17] MEDS: ATORVASTATIN CALCIUM 20MG TABLET PO SCH (21:51)
[2018-06-18] VITALS (11 sets, daily range): BP systolic 91–129; BP diastolic 53–72
[2018-06-18] MEDS: IPRATROPIUM/ALBUTEROL 0.5-3(2.5)MG/3ML NEB HHN SCH ×5 (00:06→15:26)
[2018-06-18] MEDS: POLYVINYL ALCOHOL OPHTH DROPS 15ML BOTHEYE SCH ×4 (00:31→18:21)
[2018-06-18] MEDS: BLOOD SUGAR DIAGNOSTIC STRIP TEST SCH ×3 (06:30→18:21)
[2018-06-18 07:02] LABS: BASOPHILS % 0.1 % (0.0-2.0); HEMATOCRIT. 27.9 % (42.0-52.0); HEMOGLOBIN. 9.3 g/dL (14.0-18.0); LYMPHOCYTES % 8.5 % (20.0-50.0); MEAN CORPUSCULAR HEMOGLOBIN 29.1 pg (28.0-32.0); MEAN CORPUSCULAR VOLUME 87.5 fL (80.0-94.0); MEAN PLATELET VOLUME 7.9 fl (7.4-10.4); MONOCYTES % 7.3 % (2.0-8.0); NEUTROPHILS % 84.1 % (40.0-76.0); PLATELET 123 x1000/uL (130-400); RED BLOOD CELL COUNT 3.19 mill/uL (4.7-6.1); RED CELL DISTRIBUTION WIDTH 16.4 % (11.6-14.6)
[2018-06-18] MEDS: INSULIN LISPRO 100 UNITS/ML SUBCUT SCH ×3 (08:00→18:27)
[2018-06-18 08:29] LABS: CHLORIDE 98 mEq/L (98-107)
[2018-06-18 08:53] LABS: PHOSPHORUS 2.3 mg/dL (2.5-4.9)
[2018-06-18] MEDS: CARVEDILOL 3.125 MG TABLET PO SCH (09:00)
[2018-06-18] MEDS: LOSARTAN POTASSIUM 25 MG TABLET PO SCH (09:00)
[2018-06-18] MEDS: PREDNISONE 20MG TABLET PO SCH (10:51)
[2018-06-18] MEDS: FAMOTIDINE 20MG TABLET PO SCH ×2 (10:51→18:20)
[2018-06-18] MEDS: APIXABAN 5 MG TABLET PO SCH ×2 (10:51→18:20)
[2018-06-18] MEDS ORDERED: BUDESONIDE 0.5MG/2ML NEB HHN SCH (15:00)
[2018-06-19] MEDS ORDERED: EPOETIN ALFA 10000UNITS/ML VIAL SUBCUT SCH (21:00)
== END 2018-06-18 20:04 | DRG 291 ==
LOC: ER 14:56 → 5EST 17:07 → EDBEDREQ 17:13 → EDBEDREQSVC 17:13 → ENRESERV 18:17
PROVIDERS: ADMIT Specialist; ATTEND Specialist
PROC: 5A09357 Assistance with Respiratory Ventilation, Less than 24 Consecutive Hours, Continuous Positive Airway Pressure (ICD-10-PCS; 2018-06-09)
PROC: 5A09357 Assistance with Respiratory Ventilation, Less than 24 Consecutive Hours, Continuous Positive Airway Pressure (ICD-10-PCS; 2018-06-10)
PROC: 5A09357 Assistance with Respiratory Ventilation, Less than 24 Consecutive Hours, Continuous Positive Airway Pressure (ICD-10-PCS; 2018-06-11)
PROC: 5A09357 Assistance with Respiratory Ventilation, Less than 24 Consecutive Hours, Continuous Positive Airway Pressure (ICD-10-PCS; 2018-06-12)
PROC: 5A09357 Assistance with Respiratory Ventilation, Less than 24 Consecutive Hours, Continuous Positive Airway Pressure (ICD-10-PCS; 2018-06-13)
PROC: 0JH63XZ Insertion of Tunneled Vascular Access Device into Chest Subcutaneous Tissue and Fascia, Percutaneous Approach (ICD-10-PCS; principal; 2018-06-14)
PROC: 02HV33Z Insertion of Infusion Device into Superior Vena Cava, Percutaneous Approach (ICD-10-PCS; 2018-06-14)
PROC: B5181ZA Fluoroscopy of Superior Vena Cava using Low Osmolar Contrast, Guidance (ICD-10-PCS; 2018-06-14)
PROC: B548ZZA Ultrasonography of Superior Vena Cava, Guidance (ICD-10-PCS; 2018-06-14)
PROC: 5A09357 Assistance with Respiratory Ventilation, Less than 24 Consecutive Hours, Continuous Positive Airway Pressure (ICD-10-PCS; 2018-06-14)
PROC: 5A1D70Z Performance of Urinary Filtration, Intermittent, Less than 6 Hours Per Day (ICD-10-PCS; 2018-06-14)
PROC: 5A09357 Assistance with Respiratory Ventilation, Less than 24 Consecutive Hours, Continuous Positive Airway Pressure (ICD-10-PCS; 2018-06-15)
PROC: 5A1D70Z Performance of Urinary Filtration, Intermittent, Less than 6 Hours Per Day (ICD-10-PCS; 2018-06-15)
PROC: 5A1D70Z Performance of Urinary Filtration, Intermittent, Less than 6 Hours Per Day (ICD-10-PCS; 2018-06-16)
PROC: 5A09357 Assistance with Respiratory Ventilation, Less than 24 Consecutive Hours, Continuous Positive Airway Pressure (ICD-10-PCS; 2018-06-17)
PROC: 5A1D70Z Performance of Urinary Filtration, Intermittent, Less than 6 Hours Per Day (ICD-10-PCS; 2018-06-18)
DX: I13.0 Hypertensive heart and chronic kidney disease with heart failure and stage 1 through stage 4 chronic kidney disease, or unspecified chronic kidney disease (principal); I50.43 Acute on chronic combined systolic (congestive) and diastolic (congestive) heart failure; J96.20 Acute and chronic respiratory failure, unspecified whether with hypoxia or hypercapnia; E43 Unspecified severe protein-calorie malnutrition; C34.90 Malignant neoplasm of unspecified part of unspecified bronchus or lung; I48.92 Unspecified atrial flutter; J44.1 Chronic obstructive pulmonary disease with (acute) exacerbation; L03.115 Cellulitis of right lower limb; L03.116 Cellulitis of left lower limb; N17.9 Acute kidney failure, unspecified; G47.33 Obstructive sleep apnea (adult) (pediatric); I48.0 Paroxysmal atrial fibrillation; D64.9 Anemia, unspecified; E11.22 Type 2 diabetes mellitus with diabetic chronic kidney disease; E11.51 Type 2 diabetes mellitus with diabetic peripheral angiopathy without gangrene; E11.649 Type 2 diabetes mellitus with hypoglycemia without coma; E66.01 Morbid (severe) obesity due to excess calories; E78.5 Hyperlipidemia, unspecified; E87.5 Hyperkalemia; H40.9 Unspecified glaucoma; I25.10 Atherosclerotic heart disease of native coronary artery without angina pectoris; I25.2 Old myocardial infarction; I25.5 Ischemic cardiomyopathy; I27.20 Pulmonary hypertension, unspecified; I48.2 Chronic atrial fibrillation; N18.9 Chronic kidney disease, unspecified; Z79.01 Long term (current) use of anticoagulants; Z85.118 Personal history of other malignant neoplasm of bronchus and lung; Z87.891 Personal history of nicotine dependence; Z90.2 Acquired absence of lung [part of]; Z95.5 Presence of coronary angioplasty implant and graft; Z99.81 Dependence on supplemental oxygen
CPT/HCPCS: 36415; 36558; 36600; 71045; 76705; 76870; 76937; 77001; 80048; 80053; 80061; 82375; 82805; 82962; 83036; 83690; 83735; 83880; 84100; 84439; 84443; 84484; 85014; 85018; 85025; 85610; 85730; 86705; 86709; 86803; 87340; 93005; 93970; 93976; 94640; 94660; 96374; 97162; 99285; A6261; C1750; C1769; C9113; G0482; J0690; J1200; J1642; J1815; J1940; J2405; J2920; J3010; J3105; J3490; J7030; J7050; J7060; J7512; J7611; J7620; J7626

== ENCOUNTER 2018-12-04 02:20 | Inpatient (IN) | payer MEDICARE, MEDICAID ==
[~2018-12-04] VITALS: Ht 172.7 cm; Wt 102.3 kg
[~2018-12-04 02:20] MED LIST changes: -ACET-2178 PO; -APIX5TAB MT; -ATOR20TA65 MT; -CARV6.2548 MT; -DEXT30DR5 OP; -DOCU-150 MT; -FLUT1DIS2 INH; -FURO40TA5 MT; -HYDR-4001 MT; -IPRA3AMP31 NEB; -LOPE2CAP MT; -OMEP20CA10 MT; -ONDA4TAB50 MT
[2018-12-04] MEDS ORDERED: SODIUM CHLORIDE 0.9% 1,000 ML IV ONE (03:25)
[2018-12-04] MEDS ORDERED: VANCOMYCIN 1 G PREMIX 200 ML IV ONE (03:30)
[2018-12-04] MEDS ORDERED: PIPERACILLIN/TAZ 3.375G PREMIX 50 ML IV ONE (03:30)
[2018-12-04 03:49] LABS: BASOPHILS % 0.6 % (0.0-2.0); HEMOGLOBIN. 10.9 g/dL (14.0-18.0); LYMPHOCYTES % 13.9 % (20.0-50.0); MEAN CORPUSCULAR HEMOGLOBIN 29.1 pg (28.0-32.0); MEAN CORPUSCULAR VOLUME 88.3 fL (80.0-94.0); MEAN PLATELET VOLUME 6.8 fl (7.4-10.4); MONOCYTES % 14.2 % (2.0-8.0); NEUTROPHILS % 70.3 % (40.0-76.0); PLATELET 143 x1000/uL (130-400); RED BLOOD CELL COUNT 3.74 mill/uL (4.7-6.1); RED CELL DISTRIBUTION WIDTH 17.1 % (11.6-14.6)
[2018-12-04 03:55] LABS: CHLORIDE 100 mEq/L (98-107)
[2018-12-04 03:56] LABS: INR 1.1; PROTHROMBIN TIME 11.4 sec (9.1-11.1)
[2018-12-04] MEDS ORDERED: LORAZEPAM 0.5MG TABLET PO PRN (05:45)
[2018-12-04] MEDS ORDERED: GUAIFENESIN 200MG/10ML SUGAR FREE UDC PO PRN (05:45)
[2018-12-04] MEDS ORDERED: DOCUSATE SODIUM 100MG CAPSULE PO PRN (05:45)
[2018-12-04] MEDS ORDERED: IPRATROPIUM/ALBUTEROL 0.5-3(2.5)MG/3ML NEB INH PRN (05:45)
[2018-12-04] MEDS ORDERED: HYDROCODONE/ACETAMINOPHEN 10/325MG TABLET PO PRN (05:45)
[2018-12-04] MEDS ORDERED: CLONIDINE 0.1MG TABLET PO PRN (05:45)
[2018-12-04] MEDS ORDERED: ONDANSETRON HCL 4MG/2ML INJ IV PRN (05:45)
[2018-12-04] MEDS ORDERED: ACETAMINOPHEN 325MG TABLET PO PRN (05:45)
[2018-12-04] MEDS ORDERED: MAGNESIUM/ALUMINUM HYDROXIDE/SIMETHICONE 30ML UDC PO PRN (05:45)
[2018-12-04] MEDS ORDERED: DIPHENHYDRAMINE 50MG/ML VIAL IV PRN (05:45)
[2018-12-04 06:25] LABS: PHOSPHORUS 4.3 mg/dL (2.5-4.9)
[2018-12-04] MEDS ORDERED: ENOXAPARIN 40MG/0.4ML SYR SUBCUT SCH (10:00)
[2018-12-04] MEDS: ENOXAPARIN 30MG/0.3ML SYR SUBCUT SCH (11:19)
[2018-12-04] MEDS: HYDROCODONE/ACETAMINOPHEN 5/325MG TABLET PO PRN (11:57)
[2018-12-04 18:22] VITALS: BP 107/53
[2018-12-04 20:00] VITALS: BP 133/92
[2018-12-05 00:07] VITALS: BP 102/59
[2018-12-05] MEDS ORDERED: DEXTROSE 50% WATER 50ML SYRINGE IV PRN (02:30)
[2018-12-05 04:00] VITALS: BP 99/56
[2018-12-05 06:27] LABS: EOSINOPHILS % 0.8 % (0.0-5.0); HEMATOCRIT. 33.7 % (42.0-52.0); LYMPHOCYTES % 12.7 % (20.0-50.0); MEAN CORPUSCULAR HEMOGLOBIN 29.1 pg (28.0-32.0); MEAN CORPUSCULAR VOLUME 89.2 fL (80.0-94.0); MONOCYTES % 11.2 % (2.0-8.0); NEUTROPHILS % 74.3 % (40.0-76.0); PLATELET 131 x1000/uL (130-400); RED BLOOD CELL COUNT 3.78 mill/uL (4.7-6.1); RED CELL DISTRIBUTION WIDTH 17.4 % (11.6-14.6)
[2018-12-05] MEDS: BLOOD SUGAR DIAGNOSTIC STRIP TEST SCH ×4 (07:40→21:15)
[2018-12-05 08:00] VITALS: BP 104/47
[2018-12-05] MEDS: INSULIN LISPRO 100 UNITS/ML SUBCUT SCH ×4 (08:10→21:00)
[2018-12-05] MEDS: ENOXAPARIN 30MG/0.3ML SYR SUBCUT SCH (10:15)
[2018-12-05 12:00] VITALS: BP 116/48
[2018-12-05] MEDS ORDERED: VANCOMYCIN 1 G PREMIX 200 ML IV NR (15:00)
[2018-12-05] MEDS ORDERED: IOHEXOL-350 100 ML BOTTLE ONE (15:16)
[2018-12-05 16:00] VITALS: BP 165/77
[2018-12-05 20:00] VITALS: BP 105/56
[2018-12-06] VITALS (8 sets, daily range): BP systolic 100–119; BP diastolic 42–65
[2018-12-06 07:00] LABS: BASOPHILS % 0.7 % (0.0-2.0); HEMATOCRIT. 33.5 % (42.0-52.0); HEMOGLOBIN. 10.8 g/dL (14.0-18.0); LYMPHOCYTES % 15.9 % (20.0-50.0); MEAN CORPUSCULAR HEMOGLOBIN 28.5 pg (28.0-32.0); MEAN CORPUSCULAR VOLUME 88.9 fL (80.0-94.0); MEAN PLATELET VOLUME 7.1 fl (7.4-10.4); MONOCYTES % 12.6 % (2.0-8.0); NEUTROPHILS % 69.8 % (40.0-76.0); PLATELET 147 x1000/uL (130-400); RED BLOOD CELL COUNT 3.77 mill/uL (4.7-6.1); RED CELL DISTRIBUTION WIDTH 17.5 % (11.6-14.6)
[2018-12-06] MEDS: BLOOD SUGAR DIAGNOSTIC STRIP TEST SCH ×3 (07:40→21:00)
[2018-12-06] MEDS: INSULIN LISPRO 100 UNITS/ML SUBCUT SCH ×3 (08:10→21:00)
[2018-12-06] MEDS ORDERED: ENOXAPARIN 40MG/0.4ML SYR SUBCUT SCH (09:00)
[2018-12-06] MEDS ORDERED: IODIXANOL 320MG/ML 100 ML BOTTLE IV ONE (11:34)
[2018-12-06] MEDS ORDERED: LIDOCAINE HCL 1% 20ML VIAL (Pyxis) INJ ONE (11:34)
[2018-12-06] MEDS ORDERED: IOHEXOL-300 100 ML BOTTLE ONE (11:34)
[2018-12-06] MEDS ORDERED: FENTANYL CITRATE/PF 50MCG/ML 2ML VIAL ONE (11:42)
[2018-12-06] MEDS ORDERED: MIDAZOLAM HCL 2 MG/2 ML VIAL ONE (11:42)
[2018-12-06] MEDS ORDERED: ACETAMINOPHEN 325MG TABLET PO PRN (12:30)
[2018-12-06] MEDS ORDERED: ATROPINE SULFATE 1MG/10ML SYR IV PRN (12:30)
[2018-12-06] MEDS: IPRATROPIUM/ALBUTEROL 0.5-3(2.5)MG/3ML NEB HHN SCH ×2 (14:48→21:06)
[2018-12-07] VITALS (11 sets, daily range): BP systolic 91–136; BP diastolic 22–68
[2018-12-07] MEDS: IPRATROPIUM/ALBUTEROL 0.5-3(2.5)MG/3ML NEB HHN SCH ×3 (02:07→16:37)
[2018-12-07] MEDS: BLOOD SUGAR DIAGNOSTIC STRIP TEST SCH ×3 (06:13→16:21)
[2018-12-07] MEDS: INSULIN LISPRO 100 UNITS/ML SUBCUT SCH ×4 (06:13→17:03)
[2018-12-07 06:43] LABS: BASOPHILS % 0.8 % (0.0-2.0); EOSINOPHILS % 0.6 % (0.0-5.0); HEMATOCRIT. 31.9 % (42.0-52.0); HEMOGLOBIN. 10.5 g/dL (14.0-18.0); LYMPHOCYTES % 13.3 % (20.0-50.0); MEAN CORPUSCULAR VOLUME 88.2 fL (80.0-94.0); MEAN PLATELET VOLUME 6.9 fl (7.4-10.4); NEUTROPHILS % 74.3 % (40.0-76.0); PLATELET 158 x1000/uL (130-400); RED BLOOD CELL COUNT 3.62 mill/uL (4.7-6.1)
[2018-12-07] MEDS: HYDROCODONE/ACETAMINOPHEN 5/325MG TABLET PO PRN (10:01)
[2018-12-07] MEDS: APIXABAN 5 MG TABLET PO SCH ×2 (12:00→16:21)
[2018-12-07] MEDS ORDERED: VANCOMYCIN 1 G PREMIX 200 ML IV NR (17:00)
== END 2018-12-07 19:25 | DRG 871 ==
LOC: ER 02:20 → 7WST 04:53 → EDBEDREQ 05:07 → EDBEDREQTM 05:07 → EDBEDREQSVC 05:07 → ENRESERV 15:24 → 7WST 17:01 → 3WST 12-06 12:52
PROVIDERS: ADMIT Emergency Medicine; ATTEND Emergency Medicine
PROC: 5A09357 Assistance with Respiratory Ventilation, Less than 24 Consecutive Hours, Continuous Positive Airway Pressure (ICD-10-PCS; 2018-12-04)
PROC: 5A1D70Z Performance of Urinary Filtration, Intermittent, Less than 6 Hours Per Day (ICD-10-PCS; 2018-12-05)
PROC: 5A09357 Assistance with Respiratory Ventilation, Less than 24 Consecutive Hours, Continuous Positive Airway Pressure (ICD-10-PCS; 2018-12-05)
PROC: 5A09357 Assistance with Respiratory Ventilation, Less than 24 Consecutive Hours, Continuous Positive Airway Pressure (ICD-10-PCS; 2018-12-06)
PROC: B41G1ZZ Fluoroscopy of Left Lower Extremity Arteries using Low Osmolar Contrast (ICD-10-PCS; 2018-12-06)
PROC: 5A1D70Z Performance of Urinary Filtration, Intermittent, Less than 6 Hours Per Day (ICD-10-PCS; principal; 2018-12-07)
PROC: 5A09357 Assistance with Respiratory Ventilation, Less than 24 Consecutive Hours, Continuous Positive Airway Pressure (ICD-10-PCS; 2018-12-07)
DX: A41.9 Sepsis, unspecified organism (principal); N18.6 End stage renal disease; E11.52 Type 2 diabetes mellitus with diabetic peripheral angiopathy with gangrene; I50.42 Chronic combined systolic (congestive) and diastolic (congestive) heart failure; L03.115 Cellulitis of right lower limb; L03.116 Cellulitis of left lower limb; E44.0 Moderate protein-calorie malnutrition; I13.2 Hypertensive heart and chronic kidney disease with heart failure and with stage 5 chronic kidney disease, or end stage renal disease; I70.262 Atherosclerosis of native arteries of extremities with gangrene, left leg; D63.1 Anemia in chronic kidney disease; E78.5 Hyperlipidemia, unspecified; I27.20 Pulmonary hypertension, unspecified; I48.0 Paroxysmal atrial fibrillation; I87.8 Other specified disorders of veins; J44.9 Chronic obstructive pulmonary disease, unspecified; E11.22 Type 2 diabetes mellitus with diabetic chronic kidney disease; E11.42 Type 2 diabetes mellitus with diabetic polyneuropathy; E11.621 Type 2 diabetes mellitus with foot ulcer; G47.33 Obstructive sleep apnea (adult) (pediatric); H40.9 Unspecified glaucoma; I25.10 Atherosclerotic heart disease of native coronary artery without angina pectoris; I25.5 Ischemic cardiomyopathy; I89.0 Lymphedema, not elsewhere classified; L97.529 Non-pressure chronic ulcer of other part of left foot with unspecified severity; E66.01 Morbid (severe) obesity due to excess calories; M85.80 Other specified disorders of bone density and structure, unspecified site; Z99.81 Dependence on supplemental oxygen; Z99.2 Dependence on renal dialysis; Z95.5 Presence of coronary angioplasty implant and graft; Z89.422 Acquired absence of other left toe(s); Z89.421 Acquired absence of other right toe(s); Z88.1 Allergy status to other antibiotic agents; Z79.01 Long term (current) use of anticoagulants; Z85.118 Personal history of other malignant neoplasm of bronchus and lung; Z87.891 Personal history of nicotine dependence; Z82.49 Family history of ischemic heart disease and other diseases of the circulatory system; Z83.3 Family history of diabetes mellitus; Z68.34 Body mass index [BMI] 34.0-34.9, adult
CPT/HCPCS: 36245; 36415; 71045; 73590; 73620; 75635; 75710; 80048; 80061; 80202; 82962; 83036; 83605; 83735; 83880; 84100; 84145; 84443; 85651; 86140; 93005; 93970; 94640; 94660; 96365; 97162; 97166; 99285; C1760; C1769; C1887; C1893; J1644; J1650; J2250; J2543; J3010; J3370; J3490; J7030; J7050; J7620; Q9967

== ENCOUNTER 2019-01-07 09:10 | Inpatient (IN) | payer MEDICARE, MEDICAID ==
[~2019-01-07] VITALS: Ht 170.2 cm; Wt 100.7 kg
[2019-01-07] MEDS ORDERED: BISA10SU62 RC (11:35)
[2019-01-07] MEDS ORDERED: BUDE0.5A3 NEB (11:35)
[2019-01-07] MEDS ORDERED: ATOR20TA65 MT (11:35)
[2019-01-07] MEDS ORDERED: ACET-2853 PO (11:35)
[2019-01-07] MEDS ORDERED: AMOX-424 MT (11:35)
[2019-01-07] MEDS ORDERED: DIPH50CA47 PO (11:35)
[2019-01-07] MEDS ORDERED: CARV3.1242 PO (11:35)
[2019-01-07] MEDS ORDERED: HYDR-4001 PO (11:42)
[2019-01-07] MEDS ORDERED: MAG30ORA PO (11:42)
[2019-01-07] MEDS ORDERED: [UNRECOGNIZED DRUG - CODE] MT (11:42)
[2019-01-07] MEDS ORDERED: LEVVL SQ (11:42)
[2019-01-07] MEDS ORDERED: SENN-170 MT (11:42)
[2019-01-07] MEDS ORDERED: EPOE200014 IJ (11:42)
[2019-01-07] MEDS ORDERED: POLY17PO19 PO (11:42)
[2019-01-07] MEDS ORDERED: POLY1POW14 MC (11:42)
[2019-01-07] MEDS ORDERED: APIX2.5T MT (11:42)
[2019-01-07] MEDS ORDERED: LOSA25TA12 MT (11:42)
[2019-01-07] MEDS ORDERED: FOLI1TAB87 MT (11:42)
[2019-01-07] MEDS ORDERED: ASCO100T12 MT (11:42)
[2019-01-07] MEDS ORDERED: AMIN30LI2 PO (11:42)
[2019-01-07] MEDS ORDERED: IPRA3AMP31 NEB (11:42)
[2019-01-07] MEDS ORDERED: FAMO20TA8 PO (11:42)
[2019-01-07] MEDS ORDERED: ZINC220T MT (11:42)
[2019-01-07 12:00] VITALS: BP_SYST 112; BP_SYST 118; BP_DIAS 38; BP_DIAS 61
[2019-01-07 12:08] VITALS: BP 132/68
[2019-01-07] MEDS ORDERED: GUAIFENESIN 200MG/10ML SUGAR FREE UDC PO PRN (12:15)
[2019-01-07] MEDS ORDERED: DOCUSATE SODIUM 100MG CAPSULE PO PRN (12:15)
[2019-01-07] MEDS ORDERED: CLONIDINE 0.1MG TABLET PO PRN (12:15)
[2019-01-07] MEDS ORDERED: LORAZEPAM 2MG/ML CPJ IV PRN (12:15)
[2019-01-07] MEDS ORDERED: ONDANSETRON HCL 4MG/2ML INJ IV PRN (12:15)
[2019-01-07] MEDS ORDERED: ACETAMINOPHEN 325MG TABLET PO PRN (12:15)
[2019-01-07] MEDS ORDERED: DIPHENHYDRAMINE 50MG/ML VIAL IV PRN (12:15)
[2019-01-07] MEDS ORDERED: MAGNESIUM/ALUMINUM HYDROXIDE/SIMETHICONE 30ML UDC PO PRN (12:15)
[2019-01-07] MEDS ORDERED: DEXTROSE 50% WATER 50ML SYRINGE IV PRN (13:00)
[2019-01-07 15:28] LABS: BASOPHILS % 0.7 % (0.0-2.0); EOSINOPHILS % 0.8 % (0.0-5.0); HEMATOCRIT. 33.3 % (42.0-52.0); HEMOGLOBIN. 10.9 g/dL (14.0-18.0); LYMPHOCYTES % 13.5 % (20.0-50.0); MEAN CORPUSCULAR HEMOGLOBIN 29.2 pg (28.0-32.0); MEAN CORPUSCULAR VOLUME 89.4 fL (80.0-94.0); MEAN PLATELET VOLUME 7.1 fl (7.4-10.4); MONOCYTES % 9.2 % (2.0-8.0); NEUTROPHILS % 75.8 % (40.0-76.0); PLATELET 110 x1000/uL (130-400); RED BLOOD CELL COUNT 3.73 mill/uL (4.7-6.1); RED CELL DISTRIBUTION WIDTH 20.3 % (11.6-14.6)
[2019-01-07 15:29] LABS: INR 1.1; PARTIAL THROMBOPLASTIN TIME 34.5 sec (23.4-31.0); PROTHROMBIN TIME 10.9 sec (9.6-11.0)
[2019-01-07 15:32] LABS: CHLORIDE 99 mEq/L (98-107)
[2019-01-07 15:39] LABS: PHOSPHORUS 5.7 mg/dL (2.5-4.9)
[2019-01-07 15:41] LABS: CREATINE KINASE 64 IU/L (39-308)
[2019-01-07 16:00] VITALS: BP 115/68
[2019-01-07] MEDS: HYDROCODONE/ACETAMINOPHEN 5/325MG TABLET PO PRN (16:43)
[2019-01-07] MEDS: APIXABAN 2.5 MG TABLET PO SCH (16:43)
[2019-01-07] MEDS: INSULIN LISPRO 100 UNITS/ML SUBCUT SCH ×2 (16:57→21:00)
[2019-01-07] MEDS: BLOOD SUGAR DIAGNOSTIC STRIP TEST SCH ×2 (16:57→21:00)
[2019-01-07] MEDS ORDERED: CEFTRIAXONE 1 G PREMIX 50 ML IV SCH (17:00)
[2019-01-07] MEDS ORDERED: VANCOMYCIN 1250MG in DEXTROSE 5% WATER 250ML IV NR (18:30)
[2019-01-07 20:00] VITALS: BP 110/56
[2019-01-07] MEDS: IPRATROPIUM/ALBUTEROL 0.5-3(2.5)MG/3ML NEB INH PRN (21:24)
[2019-01-07] MEDS: INSULIN GLARGINE UD 100 UNITS/ML SYR SUBCUT SCH (22:00)
[2019-01-08] VITALS: BP 139/52
[2019-01-08 04:00] VITALS: BP 120/49
[2019-01-08] MEDS: INSULIN LISPRO 100 UNITS/ML SUBCUT SCH ×4 (06:56→21:00)
[2019-01-08] MEDS: BLOOD SUGAR DIAGNOSTIC STRIP TEST SCH ×4 (06:56→20:54)
[2019-01-08 07:02] LABS: CHLORIDE 103 mEq/L (98-107)
[2019-01-08 07:19] LABS: BASOPHILS % 0.4 % (0.0-2.0); EOSINOPHILS % 1.3 % (0.0-5.0); HEMATOCRIT. 30.1 % (42.0-52.0); HEMOGLOBIN. 9.8 g/dL (14.0-18.0); LYMPHOCYTES % 16.9 % (20.0-50.0); MEAN CORPUSCULAR VOLUME 89.2 fL (80.0-94.0); NEUTROPHILS % 69.4 % (40.0-76.0); PLATELET 107 x1000/uL (130-400); RED BLOOD CELL COUNT 3.38 mill/uL (4.7-6.1); RED CELL DISTRIBUTION WIDTH 19.8 % (11.6-14.6)
[2019-01-08 07:22] LABS: LDL CHOLESTEROL 38 mg/dL (5-100)
[2019-01-08 07:23] LABS: HDL CHOLESTEROL 47 mg/dL (40-59)
[2019-01-08] MEDS: APIXABAN 2.5 MG TABLET PO SCH ×2 (08:44→16:02)
[2019-01-08] MEDS: HYDROCODONE/ACETAMINOPHEN 5/325MG TABLET PO PRN ×2 (10:34→21:11)
[2019-01-08 12:33] LABS: T4 FREE 1.21 ng/dL (0.76-1.46)
[2019-01-08] MEDS: CEFTRIAXONE 1 G PREMIX 50 ML IV SCH ×2 (17:40→20:14)
[2019-01-08 20:00] VITALS: BP 111/50
[2019-01-08] MEDS: IPRATROPIUM/ALBUTEROL 0.5-3(2.5)MG/3ML NEB INH PRN (20:30)
[2019-01-08] MEDS: INSULIN GLARGINE UD 100 UNITS/ML SYR SUBCUT SCH (21:09)
[2019-01-09] VITALS: BP 106/56
[2019-01-09 04:00] VITALS: BP 111/63
[2019-01-09] MEDS: BLOOD SUGAR DIAGNOSTIC STRIP TEST SCH ×4 (06:14→21:00)
[2019-01-09] MEDS: INSULIN LISPRO 100 UNITS/ML SUBCUT SCH ×4 (06:34→21:00)
[2019-01-09 06:39] LABS: BASOPHILS % 0.5 % (0.0-2.0); EOSINOPHILS % 1.3 % (0.0-5.0); HEMATOCRIT. 30.1 % (42.0-52.0); HEMOGLOBIN. 9.8 g/dL (14.0-18.0); LYMPHOCYTES % 18.5 % (20.0-50.0); MEAN CORPUSCULAR HEMOGLOBIN 29.3 pg (28.0-32.0); MEAN PLATELET VOLUME 6.9 fl (7.4-10.4); MONOCYTES % 13.5 % (2.0-8.0); NEUTROPHILS % 66.2 % (40.0-76.0); PLATELET 104 x1000/uL (130-400); RED BLOOD CELL COUNT 3.34 mill/uL (4.7-6.1); RED CELL DISTRIBUTION WIDTH 19.3 % (11.6-14.6)
[2019-01-09 08:00] VITALS: BP 96/53
[2019-01-09] MEDS ORDERED: GENTAMICIN SULF 40MG/ML 2ML VIAL ONE (08:35)
[2019-01-09] MEDS ORDERED: LIDOCAINE HCL 1% 20ML VIAL (Pyxis) INJ ONE (08:35)
[2019-01-09] MEDS ORDERED: BACITRACIN 50,000 UNITS/VIAL ONE (08:36)
[2019-01-09] MEDS ORDERED: BUPIVACAINE HCL/PF 0.5% (5MG/ML) 10ML ONE (08:36)
[2019-01-09] MEDS ORDERED: FENTANYL CITRATE/PF 50MCG/ML 2ML VIAL ONE (08:52)
[2019-01-09] MEDS ORDERED: PROPOFOL 200MG/20ML VIAL IV ONE (08:52)
[2019-01-09] MEDS ORDERED: MIDAZOLAM HCL 2 MG/2 ML VIAL ONE (08:52)
[2019-01-09 12:21] VITALS: BP 106/53
[2019-01-09] MEDS ORDERED: VANCOMYCIN 2,000 MG in DEXT 5% WATER 500 ML IV NR (13:30)
[2019-01-09 17:03] VITALS: BP 104/51
[2019-01-09] MEDS: CEFTRIAXONE 1 G PREMIX 50 ML IV SCH (17:47)
[2019-01-09] MEDS: APIXABAN 2.5 MG TABLET PO SCH (17:47)
[2019-01-09 20:00] VITALS: BP 113/53
[2019-01-09] MEDS: INSULIN GLARGINE UD 100 UNITS/ML SYR SUBCUT SCH (22:00)
[2019-01-09] MEDS: HYDROCODONE/ACETAMINOPHEN 5/325MG TABLET PO PRN (22:49)
[2019-01-09] MEDS: MUPIROCIN 2% OINT 22GM NS SCH (22:58)
[2019-01-10] VITALS: BP 104/53
[2019-01-10 04:00] VITALS: BP 100/55
[2019-01-10 06:07] LABS: BASOPHILS % 0.7 % (0.0-2.0); HEMATOCRIT. 30.3 % (42.0-52.0); HEMOGLOBIN. 9.8 g/dL (14.0-18.0); LYMPHOCYTES % 16.9 % (20.0-50.0); MEAN CORPUSCULAR HEMOGLOBIN 28.9 pg (28.0-32.0); MEAN CORPUSCULAR VOLUME 89.1 fL (80.0-94.0); MONOCYTES % 14.3 % (2.0-8.0); NEUTROPHILS % 67.1 % (40.0-76.0); PLATELET 104 x1000/uL (130-400); RED CELL DISTRIBUTION WIDTH 19.2 % (11.6-14.6)
[2019-01-10] MEDS: BLOOD SUGAR DIAGNOSTIC STRIP TEST SCH ×2 (07:06→11:50)
[2019-01-10] MEDS: INSULIN LISPRO 100 UNITS/ML SUBCUT SCH ×2 (07:33→11:50)
[2019-01-10 07:57] VITALS: BP 127/68
[2019-01-10] MEDS: APIXABAN 2.5 MG TABLET PO SCH (08:50)
[2019-01-10] MEDS: MUPIROCIN 2% OINT 22GM NS SCH (08:51)
[2019-01-10] MEDS: HYDROCODONE/ACETAMINOPHEN 5/325MG TABLET PO PRN ×2 (09:02→13:47)
[2019-01-10 12:00] VITALS: BP 117/55
[2019-01-10 13:59] VITALS: BP 117/55
[2019-01-10 16:00] VITALS: BP 113/67
== END 2019-01-10 16:55 | DRG 255 ==
LOC: 6EST 09:10 → 8WST 01-08 00:08
PROVIDERS: ADMIT Family Medicine Adult Medicine; ATTEND Family Medicine Adult Medicine
PROC: 5A1D70Z Performance of Urinary Filtration, Intermittent, Less than 6 Hours Per Day (ICD-10-PCS; 2019-01-07)
PROC: 5A09457 Assistance with Respiratory Ventilation, 24-96 Consecutive Hours, Continuous Positive Airway Pressure (ICD-10-PCS; 2019-01-08)
PROC: 0Y6Q0Z0 Detachment at Left 1st Toe, Complete, Open Approach (ICD-10-PCS; principal; 2019-01-09)
PROC: 0Y6Y0Z0 Detachment at Left 5th Toe, Complete, Open Approach (ICD-10-PCS; 2019-01-09)
PROC: 0Y6W0Z0 Detachment at Left 4th Toe, Complete, Open Approach (ICD-10-PCS; 2019-01-09)
PROC: 0Y6U0Z0 Detachment at Left 3rd Toe, Complete, Open Approach (ICD-10-PCS; 2019-01-09)
PROC: 5A1D70Z Performance of Urinary Filtration, Intermittent, Less than 6 Hours Per Day (ICD-10-PCS; 2019-01-09)
DX: E11.52 Type 2 diabetes mellitus with diabetic peripheral angiopathy with gangrene (principal); N18.6 End stage renal disease; I13.2 Hypertensive heart and chronic kidney disease with heart failure and with stage 5 chronic kidney disease, or end stage renal disease; I42.9 Cardiomyopathy, unspecified; D61.818 Other pancytopenia; M86.8X7 Other osteomyelitis, ankle and foot; M31.9 Necrotizing vasculopathy, unspecified; G47.33 Obstructive sleep apnea (adult) (pediatric); E11.22 Type 2 diabetes mellitus with diabetic chronic kidney disease; I50.9 Heart failure, unspecified; E03.9 Hypothyroidism, unspecified; J44.9 Chronic obstructive pulmonary disease, unspecified; I25.10 Atherosclerotic heart disease of native coronary artery without angina pectoris; I48.91 Unspecified atrial fibrillation; E11.69 Type 2 diabetes mellitus with other specified complication; E66.01 Morbid (severe) obesity due to excess calories; N40.0 Benign prostatic hyperplasia without lower urinary tract symptoms; E11.621 Type 2 diabetes mellitus with foot ulcer; L97.529 Non-pressure chronic ulcer of other part of left foot with unspecified severity; Z99.2 Dependence on renal dialysis; Z79.01 Long term (current) use of anticoagulants; Z85.118 Personal history of other malignant neoplasm of bronchus and lung; Z88.8 Allergy status to other drugs, medicaments and biological substances; Z68.34 Body mass index [BMI] 34.0-34.9, adult
CPT/HCPCS: 36415; 71045; 73630; 73721; 80048; 80061; 82550; 82962; 83036; 83735; 83880; 84100; 84439; 84443; 84481; 84484; 85651; 86140; 88305; 88311; 93970; J0696; J1200; J1580; J1815; J2060; J2250; J2704; J3010; J3370; J3490; J7040; J7060; J7620

== ENCOUNTER 2019-02-28 13:15 | Inpatient (IN) | payer MEDICARE, MEDICAID ==
[~2019-02-28] VITALS: Ht 172.7 cm; Wt 119.5 kg
[~2019-02-28 13:15] MED LIST changes: +ACET-2853 PO; +AMIN30LI2 PO; +AMOX-424 MT; +APIX2.5T MT; +ASCO100T12 MT; +ATOR20TA65 MT; +BISA10SU62 RC; +BUDE0.5A3 NEB; +CARV3.1242 PO; +DIPH50CA47 PO; +EPOE200014 IJ; +FAMO20TA8 PO; +FOLI1TAB87 MT; +IPRA3AMP31 NEB; +LOSA25TA26 MT; +MAG30ORA PO; +POLY17PO19 PO; +POLY1POW14 MC; +SENN-170 MT; +ZINC220T MT; +[UNRECOGNIZED DRUG - CODE] MT
[2019-02-28] MEDS ORDERED: VANCOMYCIN 1 G PREMIX 200 ML IV ONE (14:00)
[2019-02-28] MEDS ORDERED: SODIUM CHLORIDE 0.9% 1000ML BAG (SEPSIS BOLUS) IV ONE (14:00)
[2019-02-28] MEDS ORDERED: PIPERACILLIN/TAZ 3.375G PREMIX 50 ML IV ONE (14:00)
[2019-02-28] MEDS ORDERED: HYDROCODONE/ACETAMINOPHEN 5/325MG TABLET PO ONE (14:00)
[2019-02-28 14:21] LABS: HEMATOCRIT. 34.1 % (42.0-52.0); HEMOGLOBIN. 11.1 g/dL (14.0-18.0); MEAN CORPUSCULAR HEMOGLOBIN 28.3 pg (28.0-32.0); MEAN CORPUSCULAR VOLUME 87.3 fL (80.0-94.0); MEAN PLATELET VOLUME 6.9 fl (7.4-10.4); PLATELET 196 x1000/uL (130-400); RED BLOOD CELL COUNT 3.91 mill/uL (4.7-6.1); RED CELL DISTRIBUTION WIDTH 18.6 % (11.6-14.6)
[2019-02-28 14:26] LABS: CHLORIDE 95 mEq/L (98-107)
[2019-02-28 14:30] LABS: INR 1.1; PARTIAL THROMBOPLASTIN TIME 34.2 sec (23.4-31.0); PROTHROMBIN TIME 11.8 sec (9.6-11.0)
[2019-02-28] MEDS ORDERED: LIDOCAINE HCL 1% 20ML VIAL (Pyxis) INJ ONE (14:34)
[2019-02-28 15:31] LABS: PLATELET ESTIMATE NORMAL
[2019-02-28] MEDS ORDERED: NOREPINEPHRINE 4 MG in DEXT 5% WATER 246 ML IV ONE (16:45)
[2019-02-28] MEDS ORDERED: NOREPINEPHRINE 4MG/250ML PMX 250 ML IV SCH (17:00)
[2019-03-01] VITALS (12 sets, daily range): BP systolic 86–158; BP diastolic 37–63
[2019-03-01] MEDS ORDERED: DEXTROSE 50% WATER 50ML SYRINGE IV PRN ×2 (05:30→10:15)
[2019-03-01] MEDS: HYDROCODONE/ACETAMINOPHEN 5/325MG TABLET PO PRN ×2 (06:40→13:48)
[2019-03-01] MEDS: BLOOD SUGAR DIAGNOSTIC STRIP TEST SCH ×6 (07:55→21:42)
[2019-03-01 09:41] LABS: HEMATOCRIT. 36.2 % (42.0-52.0); HEMOGLOBIN. 11.6 g/dL (14.0-18.0); MEAN CORPUSCULAR HEMOGLOBIN 28.1 pg (28.0-32.0); MEAN CORPUSCULAR VOLUME 87.9 fL (80.0-94.0); MEAN PLATELET VOLUME 7.2 fl (7.4-10.4); PLATELET 223 x1000/uL (130-400); RED BLOOD CELL COUNT 4.12 mill/uL (4.7-6.1); RED CELL DISTRIBUTION WIDTH 18.9 % (11.6-14.6)
[2019-03-01 09:58] LABS: CHLORIDE 95 mEq/L (98-107)
[2019-03-01 10:06] LABS: PHOSPHORUS 3.7 mg/dL (2.5-4.9)
[2019-03-01] MEDS ORDERED: ZOLPIDEM TARTRATE 5MG TABLET PO PRN (10:15)
[2019-03-01] MEDS ORDERED: BUDESONIDE 0.5MG/2ML NEB INH SCH (10:15)
[2019-03-01] MEDS ORDERED: DOCUSATE SODIUM 100MG CAPSULE PO PRN (10:15)
[2019-03-01] MEDS ORDERED: PREDNISONE 20MG TABLET PO SCH (10:15)
[2019-03-01] MEDS ORDERED: ACETAMINOPHEN 325MG TABLET PO PRN (10:15)
[2019-03-01] MEDS ORDERED: LACTULOSE 20G/30ML UDC PO NR (10:45)
[2019-03-01] MEDS: OMEPRAZOLE 20MG CAPSULE EXTENDED RELEASE PO SCH (10:51)
[2019-03-01] MEDS: ZINC SULFATE 220 MG ( 50 ) CAPSULE PO SCH (10:51)
[2019-03-01 10:54] LABS: PLATELET ESTIMATE NORMAL
[2019-03-01] MEDS: INSULIN LISPRO 100 UNITS/ML SUBCUT SCH ×3 (13:04→21:52)
[2019-03-01] MEDS: ENOXAPARIN 120MG/0.8ML SYR SUBCUT SCH (13:05)
[2019-03-01] MEDS: PREDNISONE 20MG TABLET PO SCH ×2 (13:23→18:44)
[2019-03-01] MEDS: IPRATROPIUM/ALBUTEROL 0.5-3(2.5)MG/3ML NEB HHN SCH ×2 (13:59→21:15)
[2019-03-01] MEDS: FLUTICASONE PROPIONATE 50MCG/SPRAY BOTTLE BOTHNSTRLS SCH ×2 (14:30→21:50)
[2019-03-01] MEDS: PIPERACILLIN/TAZ 2.25G PREMIX 50 ML IV SCH ×2 (14:30→21:44)
[2019-03-01] MEDS ORDERED: VANCOMYCIN 1,750 MG in DEXT 5% WATER 250 ML IV SCH (15:00)
[2019-03-01] MEDS ORDERED: NA PHOS,M-B/NA PHOS,DI-BA ENEMA 118ML PR NR (18:45)
[2019-03-01] MEDS: ATORVASTATIN CALCIUM 20MG TABLET PO SCH (21:44)
[2019-03-02] VITALS (12 sets, daily range): BP systolic 81–122; BP diastolic 37–84
[2019-03-02] MEDS: IPRATROPIUM/ALBUTEROL 0.5-3(2.5)MG/3ML NEB HHN SCH ×4 (02:07→20:25)
[2019-03-02] MEDS: PIPERACILLIN/TAZ 2.25G PREMIX 50 ML IV SCH ×3 (06:18→21:43)
[2019-03-02 06:57] LABS: HEMATOCRIT. 34.5 % (42.0-52.0); MEAN CORPUSCULAR HEMOGLOBIN 28.3 pg (28.0-32.0); MEAN CORPUSCULAR VOLUME 88.4 fL (80.0-94.0); MEAN PLATELET VOLUME 7.2 fl (7.4-10.4); PLATELET 197 x1000/uL (130-400); RED CELL DISTRIBUTION WIDTH 19.3 % (11.6-14.6)
[2019-03-02] MEDS: HYDROCODONE/ACETAMINOPHEN 5/325MG TABLET PO PRN ×2 (08:29→19:37)
[2019-03-02] MEDS: OMEPRAZOLE 20MG CAPSULE EXTENDED RELEASE PO SCH (09:56)
[2019-03-02] MEDS: PREDNISONE 20MG TABLET PO SCH ×3 (09:57→18:59)
[2019-03-02] MEDS: ZINC SULFATE 220 MG ( 50 ) CAPSULE PO SCH (09:57)
[2019-03-02] MEDS: FLUTICASONE PROPIONATE 50MCG/SPRAY BOTTLE BOTHNSTRLS SCH ×2 (09:59→21:44)
[2019-03-02] MEDS: INSULIN LISPRO 100 UNITS/ML SUBCUT SCH ×4 (10:06→21:44)
[2019-03-02 10:56] LABS: PLATELET ESTIMATE NORMAL
[2019-03-02] MEDS: BLOOD SUGAR DIAGNOSTIC STRIP TEST SCH ×3 (12:30→21:39)
[2019-03-02] MEDS: ENOXAPARIN 120MG/0.8ML SYR SUBCUT SCH (14:22)
[2019-03-02 15:17] LABS: BG BASE EXCESS -1.7 mmol/L (-2.0-2.0); BG BILEVEL POS AIRWAY PRESSURE 15/5; BG CARBOXYHEMOGLOBIN 1.3 % (0.5-1.5); BG DEOXYHEMOGLOBIN 1.7 % (0.0-5.0); BG HCO3 ACT 24.3 mmol/L (22.0-26.0); BG METHEMOGLOBIN 0.3 % (0.0-1.5); BG OXYGEN SATURATION 98.3 % (92.0-98.5); BG OXYHEMOGLOBIN 96.7 % (94.0-97.0); BG PO2 113.7 mmHg (75.0-100.0); BG SAMPLE SITE RIGHT BRACHIAL; BG TOTAL HEMOGLOBIN 11.3 g/dL (12.0-18.0); BG VENT MODE MASK - BIPAP; BG VENT RATE 14 set
[2019-03-02] MEDS: ATORVASTATIN CALCIUM 20MG TABLET PO SCH (21:43)
[2019-03-02] MEDS: GUAIFENESIN 600MG ER TABLET PO SCH (21:43)
[2019-03-03] VITALS (8 sets, daily range): BP systolic 81–110; BP diastolic 40–67
[2019-03-03] MEDS: IPRATROPIUM/ALBUTEROL 0.5-3(2.5)MG/3ML NEB HHN SCH ×4 (02:08→21:12)
[2019-03-03] MEDS: PIPERACILLIN/TAZ 2.25G PREMIX 50 ML IV SCH ×3 (06:01→23:10)
[2019-03-03 06:22] LABS: MEAN CORPUSCULAR HEMOGLOBIN 28.3 pg (28.0-32.0); MEAN CORPUSCULAR VOLUME 87.3 fL (80.0-94.0); MEAN PLATELET VOLUME 7.2 fl (7.4-10.4); PLATELET 203 x1000/uL (130-400); RED BLOOD CELL COUNT 3.55 mill/uL (4.7-6.1)
[2019-03-03] MEDS: BLOOD SUGAR DIAGNOSTIC STRIP TEST SCH ×4 (07:30→22:30)
[2019-03-03] MEDS: INSULIN LISPRO 100 UNITS/ML SUBCUT SCH ×4 (08:41→23:11)
[2019-03-03] MEDS: ZINC SULFATE 220 MG ( 50 ) CAPSULE PO SCH (08:45)
[2019-03-03] MEDS: PREDNISONE 20MG TABLET PO SCH ×3 (08:45→18:06)
[2019-03-03] MEDS: GUAIFENESIN 600MG ER TABLET PO SCH ×2 (08:45→23:09)
[2019-03-03] MEDS: FAMOTIDINE 20MG TABLET PO SCH (08:46)
[2019-03-03] MEDS: FLUTICASONE PROPIONATE 50MCG/SPRAY BOTTLE BOTHNSTRLS SCH ×2 (08:46→23:10)
[2019-03-03] MEDS: HYDROCODONE/ACETAMINOPHEN 5/325MG TABLET PO PRN ×2 (08:54→23:09)
[2019-03-03 09:31] LABS: PLATELET ESTIMATE NORMAL
[2019-03-03] MEDS: ENOXAPARIN 120MG/0.8ML SYR SUBCUT SCH (12:48)
[2019-03-03] MEDS ORDERED: VANCOMYCIN 500 MG PREMIX 100 ML IV SCH (13:00)
[2019-03-03] MEDS ORDERED: INSULIN GLARGINE UD 100 UNITS/ML SYR SUBCUT SCH (22:00)
[2019-03-03] MEDS: ATORVASTATIN CALCIUM 20MG TABLET PO SCH (23:09)
[2019-03-04] VITALS (10 sets, daily range): BP systolic 91–128; BP diastolic 49–67
[2019-03-04] MEDS: IPRATROPIUM/ALBUTEROL 0.5-3(2.5)MG/3ML NEB HHN SCH ×3 (02:14→15:32)
[2019-03-04] MEDS: PIPERACILLIN/TAZ 2.25G PREMIX 50 ML IV SCH ×3 (05:49→21:41)
[2019-03-04 06:57] LABS: HEMATOCRIT. 32.8 % (42.0-52.0); HEMOGLOBIN. 10.7 g/dL (14.0-18.0); MEAN CORPUSCULAR HEMOGLOBIN 28.5 pg (28.0-32.0); MEAN CORPUSCULAR VOLUME 87.4 fL (80.0-94.0); MEAN PLATELET VOLUME 7.1 fl (7.4-10.4); PLATELET 208 x1000/uL (130-400); RED BLOOD CELL COUNT 3.75 mill/uL (4.7-6.1); RED CELL DISTRIBUTION WIDTH 19.3 % (11.6-14.6)
[2019-03-04] MEDS: BLOOD SUGAR DIAGNOSTIC STRIP TEST SCH ×4 (07:30→21:41)
[2019-03-04] MEDS: FAMOTIDINE 20MG TABLET PO SCH (09:43)
[2019-03-04] MEDS: GUAIFENESIN 600MG ER TABLET PO SCH (09:44)
[2019-03-04] MEDS: MIDODRINE HCL 5MG TABLET PO SCH ×3 (09:44→16:47)
[2019-03-04] MEDS: ZINC SULFATE 220 MG ( 50 ) CAPSULE PO SCH (09:44)
[2019-03-04] MEDS: PREDNISONE 20MG TABLET PO SCH ×3 (09:44→17:02)
[2019-03-04] MEDS: INSULIN LISPRO 100 UNITS/ML SUBCUT SCH ×4 (09:46→20:59)
[2019-03-04] MEDS: FLUTICASONE PROPIONATE 50MCG/SPRAY BOTTLE BOTHNSTRLS SCH (09:47)
[2019-03-04] MEDS: HYDROCODONE/ACETAMINOPHEN 5/325MG TABLET PO PRN ×3 (10:06→20:52)
[2019-03-04] MEDS ORDERED: THROAT LOZENGES-BENZOCAINE/MENTH/CETYLPYRD CL LOZENGES MM PRN (12:30)
[2019-03-04 12:52] LABS: PLATELET ESTIMATE NORMAL
[2019-03-04] MEDS: ENOXAPARIN 120MG/0.8ML SYR SUBCUT SCH (13:04)
[2019-03-04] MEDS: MAGNESIUM/ALUMINUM HYDROXIDE/SIMETHICONE 30ML UDC PO PRN (19:41)
[2019-03-04] MEDS: ATORVASTATIN CALCIUM 20MG TABLET PO SCH (20:33)
[2019-03-04] MEDS: INSULIN GLARGINE UD 100 UNITS/ML SYR SUBCUT SCH (21:43)
[2019-03-04] MEDS ORDERED: ACETYLCYSTEINE 100MG/ML 10% VIAL 4ML INH SCH (22:00)
[2019-03-05] VITALS (11 sets, daily range): BP systolic 33–132; BP diastolic 22–87
[2019-03-05] MEDS: PIPERACILLIN/TAZ 2.25G PREMIX 50 ML IV SCH ×3 (05:32→21:43)
[2019-03-05] MEDS: BLOOD SUGAR DIAGNOSTIC STRIP TEST SCH ×4 (07:39→21:49)
[2019-03-05 07:46] LABS: HEMATOCRIT. 33.5 % (42.0-52.0); HEMOGLOBIN. 10.7 g/dL (14.0-18.0); MEAN CORPUSCULAR HEMOGLOBIN 28.2 pg (28.0-32.0); MEAN CORPUSCULAR VOLUME 88.1 fL (80.0-94.0); MEAN PLATELET VOLUME 7.2 fl (7.4-10.4); PLATELET 207 x1000/uL (130-400); RED CELL DISTRIBUTION WIDTH 19.6 % (11.6-14.6)
[2019-03-05] MEDS ORDERED: IPRATROPIUM/ALBUTEROL 0.5-3(2.5)MG/3ML NEB HHN SCH (09:00)
[2019-03-05] MEDS ORDERED: PREDNISONE 20MG TABLET PO SCH (09:00)
[2019-03-05] MEDS: ZINC SULFATE 220 MG ( 50 ) CAPSULE PO SCH ×2 (09:00→11:10)
[2019-03-05] MEDS ORDERED: HEPARIN SODIUM 1,000 UNIT/1ML VIAL IV NR (09:15)
[2019-03-05] MEDS: INSULIN LISPRO 100 UNITS/ML SUBCUT SCH ×4 (10:23→22:00)
[2019-03-05] MEDS: ENOXAPARIN 120MG/0.8ML SYR SUBCUT SCH (11:09)
[2019-03-05] MEDS: MIDODRINE HCL 5MG TABLET PO SCH ×3 (11:10→16:57)
[2019-03-05] MEDS: INSULIN GLARGINE UD 100 UNITS/ML SYR SUBCUT SCH ×2 (11:11→22:02)
[2019-03-05] MEDS: FAMOTIDINE 20MG TABLET PO SCH (11:12)
[2019-03-05 14:23] LABS: PLATELET ESTIMATE NORMAL
[2019-03-05] MEDS: HYDROCODONE/ACETAMINOPHEN 5/325MG TABLET PO PRN (16:09)
[2019-03-05] MEDS: IPRATROPIUM/ALBUTEROL 0.5-3(2.5)MG/3ML NEB HHN SCH ×2 (16:34→21:11)
[2019-03-05] MEDS: DOCUSATE SODIUM 100MG CAPSULE PO SCH (16:52)
[2019-03-05] MEDS ORDERED: VANCOMYCIN 1,750 MG in DEXT 5% WATER 500 ML IV NR (18:00)
[2019-03-05] MEDS: ACETYLCYSTEINE 100MG/ML 10% VIAL 4ML INH SCH ×2 (21:07→21:12)
[2019-03-05] MEDS: ATORVASTATIN CALCIUM 20MG TABLET PO SCH (21:43)
[2019-03-06] VITALS (10 sets, daily range): BP systolic 101–142; BP diastolic 46–81
[2019-03-06] MEDS: IPRATROPIUM/ALBUTEROL 0.5-3(2.5)MG/3ML NEB HHN SCH ×4 (02:00→20:27)
[2019-03-06] MEDS: PIPERACILLIN/TAZ 2.25G PREMIX 50 ML IV SCH ×3 (05:52→22:06)
[2019-03-06] MEDS: BLOOD SUGAR DIAGNOSTIC STRIP TEST SCH ×4 (07:43→21:47)
[2019-03-06 08:10] LABS: HEMATOCRIT. 34.2 % (42.0-52.0); HEMOGLOBIN. 10.9 g/dL (14.0-18.0); MEAN CORPUSCULAR HEMOGLOBIN 28.3 pg (28.0-32.0); MEAN PLATELET VOLUME 7.7 fl (7.4-10.4); PLATELET 186 x1000/uL (130-400); RED BLOOD CELL COUNT 3.85 mill/uL (4.7-6.1); RED CELL DISTRIBUTION WIDTH 20.1 % (11.6-14.6)
[2019-03-06] MEDS: PREDNISONE 20MG TABLET PO SCH (08:56)
[2019-03-06] MEDS: MIDODRINE HCL 5MG TABLET PO SCH ×3 (08:57→17:00)
[2019-03-06] MEDS: DOCUSATE SODIUM 100MG CAPSULE PO SCH ×2 (08:57→17:00)
[2019-03-06] MEDS: FAMOTIDINE 20MG TABLET PO SCH (08:58)
[2019-03-06] MEDS: INSULIN LISPRO 100 UNITS/ML SUBCUT SCH ×4 (09:01→21:55)
[2019-03-06] MEDS: ACETYLCYSTEINE 100MG/ML 10% VIAL 4ML INH SCH ×2 (09:22→14:27)
[2019-03-06 09:26] LABS: PLATELET ESTIMATE NORMAL
[2019-03-06] MEDS: INSULIN GLARGINE UD 100 UNITS/ML SYR SUBCUT SCH ×3 (09:29→21:56)
[2019-03-06] MEDS ORDERED: LACTULOSE 20G/30ML UDC PO SCH (11:30)
[2019-03-06] MEDS: ENOXAPARIN 120MG/0.8ML SYR SUBCUT SCH (13:30)
[2019-03-06] MEDS: LACTULOSE 20G/30ML UDC PO PRN (19:47)
[2019-03-06] MEDS: ATORVASTATIN CALCIUM 20MG TABLET PO SCH (20:39)
[2019-03-07] VITALS (25 sets, daily range): BP systolic 90–155; BP diastolic 39–85
[2019-03-07] MEDS: IPRATROPIUM/ALBUTEROL 0.5-3(2.5)MG/3ML NEB HHN SCH ×4 (02:22→20:15)
[2019-03-07] MEDS: PIPERACILLIN/TAZ 2.25G PREMIX 50 ML IV SCH ×3 (06:00→21:45)
[2019-03-07] MEDS: BLOOD SUGAR DIAGNOSTIC STRIP TEST SCH ×4 (07:30→21:28)
[2019-03-07 07:40] LABS: HEMATOCRIT. 34.3 % (42.0-52.0); HEMOGLOBIN. 11.1 g/dL (14.0-18.0); MEAN CORPUSCULAR HEMOGLOBIN 28.4 pg (28.0-32.0); MEAN PLATELET VOLUME 7.5 fl (7.4-10.4); PLATELET 184 x1000/uL (130-400); RED CELL DISTRIBUTION WIDTH 20.3 % (11.6-14.6)
[2019-03-07] MEDS: INSULIN LISPRO 100 UNITS/ML SUBCUT SCH ×4 (08:07→21:00)
[2019-03-07] MEDS: DOCUSATE SODIUM 100MG CAPSULE PO SCH ×2 (08:12→18:42)
[2019-03-07] MEDS: ZINC SULFATE 220 MG ( 50 ) CAPSULE PO SCH (08:12)
[2019-03-07] MEDS: FAMOTIDINE 20MG TABLET PO SCH (08:12)
[2019-03-07] MEDS: PREDNISONE 20MG TABLET PO SCH (08:12)
[2019-03-07] MEDS: MIDODRINE HCL 5MG TABLET PO SCH ×3 (08:12→18:42)
[2019-03-07] MEDS: ACETYLCYSTEINE 100MG/ML 10% VIAL 4ML INH SCH ×2 (08:20→20:14)
[2019-03-07] MEDS ORDERED: HEPARIN SODIUM 1,000 UNIT/1ML VIAL IV SCH (10:15)
[2019-03-07] MEDS: INSULIN GLARGINE UD 100 UNITS/ML SYR SUBCUT SCH ×2 (10:25→21:29)
[2019-03-07 11:04] LABS: PLATELET ESTIMATE NORMAL
[2019-03-07] MEDS ORDERED: VANCOMYCIN 1 G PREMIX 200 ML IV SCH (12:00)
[2019-03-07] MEDS: MAGNESIUM/ALUMINUM HYDROXIDE/SIMETHICONE 30ML UDC PO PRN (19:59)
[2019-03-07] MEDS: ATORVASTATIN CALCIUM 20MG TABLET PO SCH (20:05)
[2019-03-07] MEDS: ONDANSETRON HCL 4MG/2ML INJ IV PRN (20:19)
[2019-03-07] MEDS: ZOLPIDEM TARTRATE 5MG TABLET PO PRN (21:41)
[2019-03-08] VITALS (8 sets, daily range): BP systolic 83–113; BP diastolic 50–74
[2019-03-08] MEDS: LACTULOSE 20G/30ML UDC PO PRN
[2019-03-08] MEDS: IPRATROPIUM/ALBUTEROL 0.5-3(2.5)MG/3ML NEB HHN SCH ×4 (02:40→21:43)
[2019-03-08] MEDS: PIPERACILLIN/TAZ 2.25G PREMIX 50 ML IV SCH ×3 (06:36→23:29)
[2019-03-08] MEDS: ACETYLCYSTEINE 100MG/ML 10% VIAL 4ML INH SCH ×2 (07:41→14:10)
[2019-03-08] MEDS: INSULIN LISPRO 100 UNITS/ML SUBCUT SCH ×4 (08:00→21:00)
[2019-03-08 08:07] LABS: HEMATOCRIT. 35.3 % (42.0-52.0); HEMOGLOBIN. 11.2 g/dL (14.0-18.0); MEAN CORPUSCULAR HEMOGLOBIN 28.1 pg (28.0-32.0); MEAN CORPUSCULAR VOLUME 88.7 fL (80.0-94.0); MEAN PLATELET VOLUME 7.5 fl (7.4-10.4); PLATELET 193 x1000/uL (130-400); RED BLOOD CELL COUNT 3.98 mill/uL (4.7-6.1); RED CELL DISTRIBUTION WIDTH 20.3 % (11.6-14.6)
[2019-03-08] MEDS: BLOOD SUGAR DIAGNOSTIC STRIP TEST SCH ×4 (08:24→21:00)
[2019-03-08] MEDS: FAMOTIDINE 20MG TABLET PO SCH (08:28)
[2019-03-08] MEDS: ZINC SULFATE 220 MG ( 50 ) CAPSULE PO SCH (08:28)
[2019-03-08] MEDS: DOCUSATE SODIUM 100MG CAPSULE PO SCH ×2 (08:28→17:00)
[2019-03-08] MEDS: PREDNISONE 20MG TABLET PO SCH (08:29)
[2019-03-08] MEDS: MIDODRINE HCL 5MG TABLET PO SCH ×3 (08:29→17:00)
[2019-03-08 09:12] LABS: PLATELET ESTIMATE NORMAL
[2019-03-08] MEDS: INSULIN GLARGINE UD 100 UNITS/ML SYR SUBCUT SCH ×2 (10:00→22:00)
[2019-03-08] MEDS ORDERED: BUPIVACAINE HCL/PF 0.25% (2.5MG/ML) 10ML ONE ×2 (11:42→12:15)
[2019-03-08] MEDS ORDERED: BACITRACIN 50,000 UNITS/VIAL ONE (11:42)
[2019-03-08] MEDS ORDERED: VANCOMYCIN HCL 500 MG/VIAL ONE (11:42)
[2019-03-08] MEDS ORDERED: BACITRACIN 15GM TUBE TOP ONE (11:42)
[2019-03-08] MEDS ORDERED: NORMAL SALINE 0.9% 10 ML SYR ONE (11:42)
[2019-03-08] MEDS ORDERED: EPHEDRINE SULFATE 50MG/ML VIAL ONE (11:58)
[2019-03-08] MEDS ORDERED: PHENYLEPHRINE HCL 10 MG/ML 1ML (IV VIAL) IV ONE (11:59)
[2019-03-08] MEDS ORDERED: SODIUM CHLORIDE 0.9% 10ML VIAL ONE ×2 (11:59→12:02)
[2019-03-08] MEDS ORDERED: DEXAMETHASONE 4MG/ML 1ML VIAL ONE (12:34)
[2019-03-08] MEDS ORDERED: HYDROMORPHONE HCL/PF 2MG/ML CPJ IV PRN (14:00)
[2019-03-08] MEDS ORDERED: ONDANSETRON INJ IV PRN (15:30)
[2019-03-08] MEDS ORDERED: DIPHENHYDRAMINE INJ IV PRN (15:30)
[2019-03-08] MEDS ORDERED: HYDROMORPHONE PCA 10MG/50ML IV PRN (15:30)
[2019-03-08] MEDS ORDERED: NALOXONE INJ IV PRN (15:30)
[2019-03-08] MEDS: ATORVASTATIN CALCIUM 20MG TABLET PO SCH (21:00)
[2019-03-09] VITALS (13 sets, daily range): BP systolic 78–115; BP diastolic 33–69
[2019-03-09] MEDS: IPRATROPIUM/ALBUTEROL 0.5-3(2.5)MG/3ML NEB HHN SCH ×5 (01:40→21:20)
[2019-03-09] MEDS: BLOOD SUGAR DIAGNOSTIC STRIP TEST SCH ×4 (06:53→21:00)
[2019-03-09] MEDS: INSULIN LISPRO 100 UNITS/ML SUBCUT SCH ×4 (08:00→22:46)
[2019-03-09] MEDS: ACETYLCYSTEINE 100MG/ML 10% VIAL 4ML INH SCH ×2 (09:37→14:44)
[2019-03-09] MEDS: ZINC SULFATE 220 MG ( 50 ) CAPSULE PO SCH (09:50)
[2019-03-09] MEDS: DOCUSATE SODIUM 100MG CAPSULE PO SCH ×2 (09:50→18:17)
[2019-03-09] MEDS: FAMOTIDINE 20MG TABLET PO SCH (09:50)
[2019-03-09] MEDS: PREDNISONE 20MG TABLET PO SCH (09:50)
[2019-03-09] MEDS: INSULIN GLARGINE UD 100 UNITS/ML SYR SUBCUT SCH ×2 (09:51→22:00)
[2019-03-09] MEDS: MIDODRINE HCL 5MG TABLET PO SCH ×3 (09:52→18:17)
[2019-03-09] MEDS ORDERED: VANCOMYCIN 1,750 MG in DEXT 5% WATER 500 ML IV NR (10:30)
[2019-03-09 16:15] LABS: HEMATOCRIT. 28.5 % (42.0-52.0); MEAN CORPUSCULAR HEMOGLOBIN 28.6 pg (28.0-32.0); MEAN PLATELET VOLUME 7.5 fl (7.4-10.4); PLATELET 191 x1000/uL (130-400); RED BLOOD CELL COUNT 3.14 mill/uL (4.7-6.1); RED CELL DISTRIBUTION WIDTH 21.2 % (11.6-14.6)
[2019-03-09] MEDS: HYDROCODONE/ACETAMINOPHEN 5/325MG TABLET PO NR ×2 (16:18→18:17)
[2019-03-09] MEDS: ONDANSETRON HCL 4MG/2ML INJ IV PRN (16:19)
[2019-03-09 20:48] LABS: PLATELET ESTIMATE NORMAL
[2019-03-09] MEDS: ATORVASTATIN CALCIUM 20MG TABLET PO SCH (22:15)
[2019-03-10] VITALS (7 sets, daily range): BP systolic 93–130; BP diastolic 41–64
[2019-03-10] MEDS: ONDANSETRON HCL 4MG/2ML INJ IV PRN ×3 (00:29→17:01)
[2019-03-10] MEDS: HYDROCODONE/ACETAMINOPHEN 5/325MG TABLET PO PRN ×2 (00:52→06:05)
[2019-03-10] MEDS: IPRATROPIUM/ALBUTEROL 0.5-3(2.5)MG/3ML NEB HHN SCH ×4 (01:40→20:38)
[2019-03-10] MEDS: BLOOD SUGAR DIAGNOSTIC STRIP TEST SCH ×3 (06:10→21:00)
[2019-03-10] MEDS: ZINC SULFATE 220 MG ( 50 ) CAPSULE PO SCH (08:44)
[2019-03-10] MEDS: PREDNISONE 20MG TABLET PO SCH (08:44)
[2019-03-10] MEDS: FAMOTIDINE 20MG TABLET PO SCH (08:45)
[2019-03-10] MEDS: MIDODRINE HCL 5MG TABLET PO SCH ×3 (08:45→17:01)
[2019-03-10] MEDS: DOCUSATE SODIUM 100MG CAPSULE PO SCH ×2 (08:45→17:01)
[2019-03-10] MEDS: INSULIN LISPRO 100 UNITS/ML SUBCUT SCH ×4 (08:46→21:00)
[2019-03-10] MEDS: INSULIN GLARGINE UD 100 UNITS/ML SYR SUBCUT SCH ×2 (08:46→22:00)
[2019-03-10 08:51] LABS: HEMOGLOBIN. 8.3 g/dL (14.0-18.0); MEAN CORPUSCULAR HEMOGLOBIN 28.7 pg (28.0-32.0); MEAN PLATELET VOLUME 7.7 fl (7.4-10.4); PLATELET 189 x1000/uL (130-400); RED BLOOD CELL COUNT 2.89 mill/uL (4.7-6.1); RED CELL DISTRIBUTION WIDTH 21.5 % (11.6-14.6)
[2019-03-10 09:48] LABS: PLATELET ESTIMATE NORMAL
[2019-03-10] MEDS: ATORVASTATIN CALCIUM 20MG TABLET PO SCH (21:50)
[2019-03-10] MEDS: GABAPENTIN 300MG CAPSULE PO SCH (21:50)
[2019-03-10] MEDS: ZOLPIDEM TARTRATE 5MG TABLET PO PRN (22:13)
[2019-03-11] VITALS (11 sets, daily range): BP systolic 100–135; BP diastolic 31–81
[2019-03-11] MEDS: IPRATROPIUM/ALBUTEROL 0.5-3(2.5)MG/3ML NEB HHN SCH ×3 (05:56→14:21)
[2019-03-11] MEDS: BLOOD SUGAR DIAGNOSTIC STRIP TEST SCH ×4 (06:40→21:00)
[2019-03-11] MEDS: INSULIN LISPRO 100 UNITS/ML SUBCUT SCH ×4 (08:00→21:00)
[2019-03-11] MEDS: PREDNISONE 20MG TABLET PO SCH (08:05)
[2019-03-11] MEDS: FAMOTIDINE 20MG TABLET PO SCH (08:05)
[2019-03-11] MEDS: ZINC SULFATE 220 MG ( 50 ) CAPSULE PO SCH (08:06)
[2019-03-11] MEDS: DOCUSATE SODIUM 100MG CAPSULE PO SCH ×2 (08:06→17:57)
[2019-03-11] MEDS: MIDODRINE HCL 5MG TABLET PO SCH ×3 (08:09→17:55)
[2019-03-11] MEDS: INSULIN GLARGINE UD 100 UNITS/ML SYR SUBCUT SCH ×4 (09:08→22:00)
[2019-03-11 14:36] LABS: HEMATOCRIT. 25.6 % (42.0-52.0); HEMOGLOBIN. 8.3 g/dL (14.0-18.0); MEAN CORPUSCULAR HEMOGLOBIN 29.1 pg (28.0-32.0); MEAN PLATELET VOLUME 7.8 fl (7.4-10.4); PLATELET 162 x1000/uL (130-400); RED BLOOD CELL COUNT 2.85 mill/uL (4.7-6.1); RED CELL DISTRIBUTION WIDTH 21.5 % (11.6-14.6)
[2019-03-11 14:46] LABS: CHLORIDE 101 mEq/L (98-107)
[2019-03-11] MEDS ORDERED: MAGNESIUM/ALUMINUM HYDROXIDE/SIMETHICONE 30ML UDC PO PRN (16:00)
[2019-03-11 17:25] LABS: PLATELET ESTIMATE NORMAL
[2019-03-11] MEDS: HYDROCODONE/ACETAMINOPHEN 5/325MG TABLET PO PRN (17:57)
[2019-03-11] MEDS: ONDANSETRON HCL 4MG/2ML INJ IV PRN (19:44)
[2019-03-11] MEDS ORDERED: OMEPRAZOLE 20MG CAPSULE EXTENDED RELEASE PO SCH (21:00)
[2019-03-11] MEDS: EPOETIN ALFA 10000UNITS/ML VIAL SUBCUT SCH ×2 (21:00→21:58)
[2019-03-11] MEDS: GABAPENTIN 300MG CAPSULE PO SCH (21:58)
[2019-03-11] MEDS: ATORVASTATIN CALCIUM 20MG TABLET PO SCH (21:58)
[2019-03-12 00:47] VITALS: BP 105/55
[2019-03-12 01:48] VITALS: BP 107/44
[2019-03-12 01:49] VITALS: BP 107/44
== END 2019-03-12 02:20 | DRG 853 ==
LOC: ER 13:15 → 5EST 17:05 → EDBEDREQ 17:15 → EDBEDREQSVC 17:15 → EDBEDREQTM 17:15 → ENRESERV 22:07
PROVIDERS: ADMIT Family Medicine Adult Medicine; ATTEND Family Medicine Adult Medicine
PROC: 05HY33Z Insertion of Infusion Device into Upper Vein, Percutaneous Approach (ICD-10-PCS; 2019-02-28)
PROC: B54MZZA Ultrasonography of Right Upper Extremity Veins, Guidance (ICD-10-PCS; 2019-02-28)
PROC: 5A1D70Z Performance of Urinary Filtration, Intermittent, Less than 6 Hours Per Day (ICD-10-PCS; 2019-03-01)
PROC: 5A09357 Assistance with Respiratory Ventilation, Less than 24 Consecutive Hours, Continuous Positive Airway Pressure (ICD-10-PCS; 2019-03-02)
PROC: 5A1D70Z Performance of Urinary Filtration, Intermittent, Less than 6 Hours Per Day (ICD-10-PCS; 2019-03-03)
PROC: 5A09457 Assistance with Respiratory Ventilation, 24-96 Consecutive Hours, Continuous Positive Airway Pressure (ICD-10-PCS; 2019-03-03)
PROC: 0Y6D0Z3 Detachment at Left Upper Leg, Low, Open Approach (ICD-10-PCS; principal; 2019-03-04)
PROC: 0QBP0ZZ Excision of Left Metatarsal, Open Approach (ICD-10-PCS; 2019-03-04)
PROC: 5A1D70Z Performance of Urinary Filtration, Intermittent, Less than 6 Hours Per Day (ICD-10-PCS; 2019-03-05)
PROC: 5A09357 Assistance with Respiratory Ventilation, Less than 24 Consecutive Hours, Continuous Positive Airway Pressure (ICD-10-PCS; 2019-03-05)
PROC: 5A09357 Assistance with Respiratory Ventilation, Less than 24 Consecutive Hours, Continuous Positive Airway Pressure (ICD-10-PCS; 2019-03-06)
PROC: 5A1D70Z Performance of Urinary Filtration, Intermittent, Less than 6 Hours Per Day (ICD-10-PCS; 2019-03-07)
PROC: 5A1D70Z Performance of Urinary Filtration, Intermittent, Less than 6 Hours Per Day (ICD-10-PCS; 2019-03-08)
PROC: 5A09357 Assistance with Respiratory Ventilation, Less than 24 Consecutive Hours, Continuous Positive Airway Pressure (ICD-10-PCS; 2019-03-08)
PROC: 5A09357 Assistance with Respiratory Ventilation, Less than 24 Consecutive Hours, Continuous Positive Airway Pressure (ICD-10-PCS; 2019-03-09)
PROC: 5A09357 Assistance with Respiratory Ventilation, Less than 24 Consecutive Hours, Continuous Positive Airway Pressure (ICD-10-PCS; 2019-03-10)
PROC: 5A09357 Assistance with Respiratory Ventilation, Less than 24 Consecutive Hours, Continuous Positive Airway Pressure (ICD-10-PCS; 2019-03-11)
DX: A41.9 Sepsis, unspecified organism (principal); N17.0 Acute kidney failure with tubular necrosis; E43 Unspecified severe protein-calorie malnutrition; J96.21 Acute and chronic respiratory failure with hypoxia; I50.43 Acute on chronic combined systolic (congestive) and diastolic (congestive) heart failure; R65.21 Severe sepsis with septic shock; N18.6 End stage renal disease; J96.22 Acute and chronic respiratory failure with hypercapnia; J44.1 Chronic obstructive pulmonary disease with (acute) exacerbation; E87.1 Hypo-osmolality and hyponatremia; E11.52 Type 2 diabetes mellitus with diabetic peripheral angiopathy with gangrene; L03.116 Cellulitis of left lower limb; L03.115 Cellulitis of right lower limb; I13.2 Hypertensive heart and chronic kidney disease with heart failure and with stage 5 chronic kidney disease, or end stage renal disease; E87.2 Acidosis; J44.0 Chronic obstructive pulmonary disease with (acute) lower respiratory infection; Z68.41 Body mass index [BMI] 40.0-44.9, adult; E78.5 Hyperlipidemia, unspecified; E11.65 Type 2 diabetes mellitus with hyperglycemia; E87.5 Hyperkalemia; E83.51 Hypocalcemia; E83.42 Hypomagnesemia; D64.9 Anemia, unspecified; E66.01 Morbid (severe) obesity due to excess calories; Z99.2 Dependence on renal dialysis; I25.5 Ischemic cardiomyopathy; E11.22 Type 2 diabetes mellitus with diabetic chronic kidney disease; G47.33 Obstructive sleep apnea (adult) (pediatric); I25.10 Atherosclerotic heart disease of native coronary artery without angina pectoris; I27.20 Pulmonary hypertension, unspecified; I44.7 Left bundle-branch block, unspecified; I48.0 Paroxysmal atrial fibrillation; K59.00 Constipation, unspecified; J00 Acute nasopharyngitis [common cold]; H40.9 Unspecified glaucoma; G54.6 Phantom limb syndrome with pain; E11.649 Type 2 diabetes mellitus with hypoglycemia without coma; J20.9 Acute bronchitis, unspecified; N40.0 Benign prostatic hyperplasia without lower urinary tract symptoms; I95.9 Hypotension, unspecified; Z79.01 Long term (current) use of anticoagulants; Z79.4 Long term (current) use of insulin; Z82.49 Family history of ischemic heart disease and other diseases of the circulatory system; Z99.3 Dependence on wheelchair; Z99.81 Dependence on supplemental oxygen; Z95.5 Presence of coronary angioplasty implant and graft; Z87.891 Personal history of nicotine dependence; Z88.8 Allergy status to other drugs, medicaments and biological substances; Z89.422 Acquired absence of other left toe(s); Z90.2 Acquired absence of lung [part of]; I25.2 Old myocardial infarction; Z79.899 Other long term (current) drug therapy; Z83.3 Family history of diabetes mellitus; Z85.118 Personal history of other malignant neoplasm of bronchus and lung; Z71.3 Dietary counseling and surveillance
CPT/HCPCS: 36415; 36600; 71045; 73552; 73620; 74018; 76937; 80048; 80202; 82375; 82805; 82962; 83036; 83605; 83735; 83880; 84100; 84134; 84145; 84484; 85651; 86140; 87070; 87075; 87077; 87186; 87430; 88307; 88311; 93005; 93923; 93970; 94640; 94660; 99291; A6261; C1725; J0885; J1100; J1170; J1644; J1650; J1815; J2370; J2405; J2543; J3370; J3490; J7030; J7050; J7060; J7512; J7608; J7620